=== PATIENT | female | born 1975 | race Caucasian/White ===

== ENCOUNTER 2019-01-10 22:56 | Inpatient (IN) ==
[2019-01-10] MEDS ORDERED: *HR* LORazepam 2 MG/ML VIAL IM PRN (23:00)
[2019-01-10 23:30] LABS: Basophils # 0.1 K/mcL (0.0-0.2); Basophils % 0.5 %; Eosinophils # 0.1 K/mcL (0.0-0.6); Eosinophils % 0.7 %; Hematocrit 38.8 % (35.3-44.9); Hemoglobin 12.6 g/dL (11.5-15.4); Immature Granulocytes % 0.3 % (0-4); Immature Platelets 2.3 % (1.1-6.1); Lymphocytes # 3.4 K/mcL (0.6-4.6); Mean Corpuscular HGB Conc 32.5 g/dL (31.6-35.5); Mean Corpuscular Hemoglobin 30.2 pg (28.0-33.3); Mean Platelet Volume 9.2 fL (9.4-12.4); Monocytes # 1.1 K/mcL (0.0-1.3); Monocytes % 8.3 %; Neutrophils # 8.4 K/mcL (1.6-8.9); Platelet Count 381 K/mcL (140-400); Red Blood Count 4.17 M/mcL (3.82-4.97); Red Cell Distribution Width 13.2 % (11.5-14.5); Segmented Neutrophils % 64.2 %; White Blood Count 13.1 K/mcL (4.3-11.1)
--- NOTE | 2019-01-10 23:46 | Emergency Department Note ---
Disposition Clinical Impression: Acute psychosis, Suicidal ideation, Homicidal ideations Drug-induced psychotic disorder Qualifiers: Complication of substance-induced condition: with unspecified complication Qualified Code(s): F19.959 - Other psychoactive substance use, unspecified with psychoactive substance-induced psychotic disorder, unspecified Disposition: Admitted As Inpatient Condition: Fair Time of Disposition: 02:35 General Adult HPI - General Chief complaint: ED Psychiatric Symptoms Stated complaint: SI HI Time Seen by Provider: 01/10/19 22:59 Source: EMS - History of Present Illness HPI Narrative: 43-year-old female, arriving by EMS, with suicidal ideations and homicidal ideations. Patient endorses snorting a line of ice earlier today. She recently became homeless as she has had a falling out with her significant other. She was found wandering around [place] today. Additionally, she jumped off a 10 [place] bridge landing in water. She denies any injury or trauma from the jump. She states that she was trying to get away from people chasing her. The patient endorses current suicidal ideations, and homicidal ideations. She states that if she had access to a gun she would shoot herself or others. She does not have access to weapons, but does have access to drugs. She has tried to attempt suicide in the past. She attempted to cut her wrists in the past. She has never been hospitalized before for suicidal ideations or attempts. The patient endorses hallucinations, pressured in speech, has flight of ideas, nonlinear thoughts and ideas. Pain Scale: 0 - Related Data Previous Rx's Medication Instructions Recorded HYDROcodone/Acet 5/325 mg [[place] 1 tab PO Q4H PRN #12 tab 07/15/16 5-325 mg] Ibuprofen [Motrin] 600 mg PO TID PRN #30 tab 07/15/16 HydrOXYzine Pamoate [Vistaril] 50 mg PO TID #20 capsule 06/03/18 Allergies Allergy/AdvReac Type Severity Reaction Status Date / Time No Known Allergies Allergy Verified 08/16/15 10:43 All systems ED: reviewed and negative except as stated. Review of Systems: As Per HPI Constitutional: Denies: fever, chills, weakness Cardiovascular: Denies: chest pain, palpitations, syncope Gastrointestinal: Denies: nausea, vomiting Neurological: Denies: headache Psychiatric: Reports: anxiety, suicidal thoughts, homicidal thoughts, visual hallucinations Past Medical History - Past Medical History Medical history: Reports: no medical history Psychiatric history: Reports: anxiety, depression, panic disorder DIRECTOR OF GUIDANCE history: Reports: no DIRECTOR OF GUIDANCE history - Social History Smoking Status: Current every day smoker Smokeless Tobacco Status: No Alcohol use: Reports: none Drug use: Reports: marijuana, methamphetamine Physical Exam GENERAL EXAM Vital signs noted, please see nurses notes. General: Anxious appearing, undernourished Head: Atraumatic, normocephalic. Eyes: Sclera anicteric. ENT: Mucous membranes moist. Heart: Tachycardic rate and rhythm without appreciable murmur, gallops, or rubs. Lungs: Normal respiratory pattern without distress, lungs clear to auscultation b/l. Abdomen: Soft, non-tender, non-distended, no guarding or peritoneal signs. Skin: Warm and dry without rash. Neurologic: . Pupils are equal. Moves all extremities equally well. No focal deficits or lateralizing signs. Psychiatric: Flight of ideas, racing thoughts, pressured speech, nonlinear thoughts, visual hallucinations, anxious appearing, inability to sit still. Suicidal ideations, homicidal ideations. She was extremely paranoid, thinking that multiple people were chasing her including multiple people and trucks and cars. Musculoskeletal: No peripheral edema. No signs of DVT. I will tenderness to palpation on the left lower extremity. No signs of ecchymosis, no abrasions, n egative Homans sign - General General appearance: alert, in no apparent distress Course Course Narrative: An EKG was ordered, labs for psychiatric clearance, and 2 mg of intramuscular Ativan were ordered as the patient was quite anxious and agitated upon arrival Vital Signs Temperature 98.0 F 01/10/19 23:16 Pulse Rate 108 01/10/19 23:16 Respiratory Rate 18 01/10/19 23:16 Blood Pressure 154/95 01/10/19 23:16 O2 Sat by Pulse Oximetry 99 01/10/19 23:16 Temperature 97.6 F 01/11/19 02:50 Pulse Rate 90 01/11/19 02:50 Respiratory Rate 18 01/11/19 02:50 Blood Pressure 90/51 01/11/19 02:50 O2 Sat by Pulse Oximetry 100 01/11/19 02:50 Oxygen Delivery Oxygen Delivery Room Air Medical Decision Making - MDM Narrative Medical decision making narrative: Patient was greeted upon arrival, a thorough history and physical exam were taken from the patient. Psychiatric evaluation was performed in the emergency department, and a sitter was provided as the patient was a harm to herself and others. Behavioral health was consulted. The patient was placed on a 72 hour psychiatric hold for suicidal ideations, homicidal ideations, acute psychosis, and methamphetamine intoxication. The patient is medically cleared at this time, will be admitted at [facility] with Psychiatry. - Lab Data Result diagrams: 01/10/19 23:19 01/10/19 23:19 Lab Results 01/10/19 01/10/19 01/10/19 Range/Units 23:19 23:19 23:24 WBC 13.1 H (4.3-11.1) K/mcL RBC 4.17 (3.82-4.97) M/mcL Hgb 12.6 (11.5-15.4) g/dL Hct 38.8 (35.3-44.9) % MCV 93.0 (83.0-100.0) fL MCH 30.2 (28.0-33.3) pg MCHC 32.5 (31.6-35.5) g/dL RDW 13.2 (11.5-14.5) % Plt Count 381 (140-400) K/mcL MPV 9.2 L (9.4-12.4) fL Immature Gran % 0.3 (0-4) % Seg Neutrophils % 64.2 % Lymphocytes % 26.0 % Monocytes % 8.3 % Eosinophils % 0.7 % Basophils % 0.5 % Neutrophils # 8.4 (1.6-8.9) K/mcL Lymphocytes # 3.4 (0.6-4.6) K/mcL Monocytes # 1.1 (0.0-1.3) K/mcL Eosinophils # 0.1 (0.0-0.6) K/mcL Basophils # 0.1 (0.0-0.2) K/mcL Immature Plt Fraction 2.3 (1.1-6.1) % Sodium 136 (136-145) mEq/L Potassium 3.7 (3.5-5.1) mEq/L Chloride 102 (98-107) mEq/L Carbon Dioxide 25 (23-29) mEq/L BUN 19 (6-20) mg/dL Creatinine 0.84 (0.60-1.20) mg/dL Est GFR ( Amer) > 60 (> 60) Est GFR (Non-Af Amer) > 60 (> 60) BUN/Creatinine Ratio 23 (6-26) Glucose 107 H (70-105) mg/dL POC Glucose 157 H (70-99) mg/dL Calculated Osmolality 285 (280-300) Calcium 9.1 (8.6-10.3) mg/dL Urine Color (Yellow) Urine Clarity (Clear) Urine pH (5.0-8.0) pH Units Ur Specific [place] (1.010-1.025) Urine Protein (Neg-Trace) mg/dL Urine Glucose (UA) (Normal) mg/dL Urine Ketones (Negative) mg/dL Urine Blood (Negative) Urine Nitrite (Negative) Urine Bilirubin (Negative) Urine Urobilinogen (Normal) mg/dL Ur Leukocyte Esterase (Negative) Urine Test (Negative) Salicylates < 2.5 L (15.0-30.0) mg/dL Urine Opiates Screen (Azfnoq=586) ng/mL Ur Buprenorphine Scrn (Cutoff=5) ng/mL Acetaminophen < 10 L (10-20) mcg/mL Ur Barbiturates Screen (Epzfqe=308) ng/mL Ur Phencyclidine Scrn (Cutoff=25) ng/mL Ur Amphetamines Screen (Hhnnkp=9005) ng/mL U Benzodiazepines Scrn ([place]=909) ng/mL Urine Cocaine Screen (Cutoff= 300) ng/mL U Marijuana (THC) Screen (Cutoff = 50) ng/mL Ur Drug Screen Interp Ethyl Alcohol < 10 (Less than 10) mg/dL 01/11/19 01/11/19 01/11/19 Range/Units 00:47 00:47 00:47 WBC (4.3-11.1) K/mcL RBC (3.82-4.97) M/mcL Hgb (11.5-15.4) g/dL Hct (35.3-44.9) % MCV (83.0-100.0) fL MCH (28.0-33.3) pg MCHC (31.6-35.5) g/dL RDW (11.5-14.5) % Plt Count (140-400) K/mcL MPV (9.4-12.4) fL Immature Gran % (0-4) % Seg Neutrophils % % Lymphocytes % % Monocytes % % Eosinophils % % Basophils % % Neutrophils # (1.6-8.9) K/mcL Lymphocytes # (0.6-4.6) K/mcL Monocytes # (0.0-1.3) K/mcL Eosinophils # (0.0-0.6) K/mcL Basophils # (0.0-0.2) K/mcL Immature Plt Fraction (1.1-6.1) % Sodium (136-145) mEq/L Potassium (3.5-5.1) mEq/L Chloride (98-107) mEq/L Carbon Dioxide (23-29) mEq/L BUN (6-20) mg/dL Creatinine (0.60-1.20) mg/dL Est GFR ( Amer) (> 60) Est GFR (Non-Af Amer) (> 60) BUN/Creatinine Ratio (6-26) Glucose (70-105) mg/dL POC Glucose (70-99) mg/dL Calculated Osmolality (280-300) Calcium (8.6-10.3) mg/dL Urine Color Yellow (Yellow) Urine Clarity Clear (Clear) Urine pH 6.0 (5.0-8.0) pH Units Ur Specific [place] 1.014 (1.010-1.025) Urine Protein Negative (Neg-Trace) mg/dL Urine Glucose (UA) Normal (Normal) mg/dL Urine Ketones Negative (Negative) mg/dL Urine Blood Negative (Negative) Urine Nitrite Negative (Negative) Urine Bilirubin Negative (Negative) Urine Urobilinogen Normal (Normal) mg/dL Ur Leukocyte Esterase Negative (Negative) Urine Test Negative (Negative) Salicylates (15.0-30.0) mg/dL Urine Opiates Screen Negative (Jxcfax=986) ng/mL Ur Buprenorphine Scrn Negative (Cutoff=5) ng/mL Acetaminophen (10-20) mcg/mL Ur Barbiturates Screen Negative ([place]=232) ng/mL Ur Phencyclidine Scrn Negative (Cutoff=25) ng/mL Ur Amphetamines Screen Positive H (Awcqlt=6408) ng/mL U Benzodiazepines Scrn Negative (Bqqhwb=472) ng/mL Urine Cocaine Screen Negative (Cutoff= 300) ng/mL U Marijuana (THC) Screen Negative (Cutoff = 50) ng/mL Ur Drug Screen Interp See Below Ethyl Alcohol (Less than 10) mg/dL - EKG Data EKG #1 EKG attestation: Yes I reviewed and interpreted this EKG. EKG results narrative: EKG was interpreted by me. The rhythm is normal sinus rhythm, the rate is regular 88. The axis is normal. There is no evidence of heart block. The QRS duration is within normal limits at 91 the QTC is within normal limits at [address] elevations or depressions and no T-wave inversions or hyper acuity. There is no evidence of pathologic Q waves. There is no evidence of W PW, Brugada, HOCM.
--- NOTE | 2019-01-10 23:47 | Emergency Department Note ---
Disposition Clinical Impression: Acute psychosis, Suicidal ideation, Homicidal ideations Drug-induced psychotic disorder Qualifiers: Complication of substance-induced condition: with unspecified complication Qualified Code(s): F19.959 - Other psychoactive substance use, unspecified with psychoactive substance-induced psychotic disorder, unspecified Disposition: Admitted As Inpatient Condition: Fair Time of Disposition: 02:34 General Adult HPI - General Chief complaint: ED Psychiatric Symptoms Stated complaint: SI HI Time Seen by Provider: 01/10/19 22:59 Source: EMS Nursing Notes Reviewed: Yes Vital Signs Reviewed: Yes - History of Present Illness Pain Scale: 0 - Related Data Previous Rx's Medication Instructions Recorded HYDROcodone/Acet 5/325 mg [[place] 1 tab PO Q4H PRN #12 tab 07/15/16 5-325 mg] Ibuprofen [Motrin] 600 mg PO TID PRN #30 tab 07/15/16 HydrOXYzine Pamoate [Vistaril] 50 mg PO TID #20 capsule 06/03/18 Allergies Allergy/AdvReac Type Severity Reaction Status Date / Time No Known Allergies Allergy Verified 08/16/15 10:43 Past Medical History - Past Medical History Medical history: Reports: no medical history Psychiatric history: Reports: anxiety, depression, panic disorder CONSTRUCTION PLUMBER 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 PLUMBER history - Social History Smoking Status: Current every day smoker Smokeless Tobacco Status: No Alcohol use: Reports: none Drug use: Reports: marijuana, methamphetamine Physical Exam - General General appearance: alert, in no apparent distress Course Vital Signs Temperature 98.0 F 01/10/19 23:16 Pulse Rate 108 01/10/19 23:16 Respiratory Rate 18 01/10/19 23:16 Blood Pressure 154/95 01/10/19 23:16 O2 Sat by Pulse Oximetry 99 01/10/19 23:16 Temperature 98 F 01/10/19 23:22 Pulse Rate 98 01/10/19 23:22 Respiratory Rate 17 01/10/19 23:22 Blood Pressure 154/95 01/10/19 23:22 O2 Sat by Pulse Oximetry 99 01/10/19 23:22 Oxygen Delivery Oxygen Delivery Room Air Medical Decision Making - Medical Records Medical records reviewed: Yes I reviewed the patient's medical records. - Lab Data Lab results reviewed: Yes I reviewed the patient's lab results. Result diagrams: 01/10/19 23:19 01/10/19 23:19 Lab Results 01/10/19 01/10/19 01/10/19 Range/Units 23:19 23:19 23:24 WBC 13.1 H (4.3-11.1) K/mcL RBC 4.17 (3.82-4.97) M/mcL Hgb 12.6 (11.5-15.4) g/dL Hct 38.8 (35.3-44.9) % MCV 93.0 (83.0-100.0) fL MCH 30.2 (28.0-33.3) pg MCHC 32.5 (31.6-35.5) g/dL RDW 13.2 (11.5-14.5) % Plt Count 381 (140-400) K/mcL MPV 9.2 L (9.4-12.4) fL Immature Gran % 0.3 (0-4) % Seg Neutrophils % 64.2 % Lymphocytes % 26.0 % Monocytes % 8.3 % Eosinophils % 0.7 % Basophils % 0.5 % Neutrophils # 8.4 (1.6-8.9) K/mcL Lymphocytes # 3.4 (0.6-4.6) K/mcL Monocytes # 1.1 (0.0-1.3) K/mcL Eosinophils # 0.1 (0.0-0.6) K/mcL Basophils # 0.1 (0.0-0.2) K/mcL Immature Plt Fraction 2.3 (1.1-6.1) % Sodium 136 (136-145) mEq/L Potassium 3.7 (3.5-5.1) mEq/L Chloride 102 (98-107) mEq/L Carbon Dioxide 25 (23-29) mEq/L BUN 19 (6-20) mg/dL Creatinine 0.84 (0.60-1.20) mg/dL Est GFR ( Amer) > 60 (> 60) Est GFR (Non-Af Amer) > 60 (> 60) BUN/Creatinine Ratio 23 (6-26) Glucose 107 H (70-105) mg/dL POC Glucose 157 H (70-99) mg/dL Calculated Osmolality 285 (280-300) Calcium 9.1 (8.6-10.3) mg/dL Urine Color (Yellow) Urine Clarity (Clear) Urine pH (5.0-8.0) pH Units Ur Specific [place] (1.010-1.025) Urine Protein (Neg-Trace) mg/dL Urine Glucose (UA) (Normal) mg/dL Urine Ketones (Negative) mg/dL Urine Blood (Negative) Urine Nitrite (Negative) Urine Bilirubin (Negative) Urine Urobilinogen (Normal) mg/dL Ur Leukocyte Esterase (Negative) Urine Test (Negative) Salicylates < 2.5 L (15.0-30.0) mg/dL Urine Opiates Screen (Bslkhm=751) ng/mL Ur Buprenorphine Scrn (Cutoff=5) ng/mL Acetaminophen < 10 L (10-20) mcg/mL Ur Barbiturates Screen (Wpukze=680) ng/mL Ur Phencyclidine Scrn (Cutoff=25) ng/mL Ur Amphetamines Screen (Axfkjc=1497) ng/mL U Benzodiazepines Scrn (Qnlrsn=510) ng/mL Urine Cocaine Screen (Cutoff= 300) ng/mL U Marijuana (THC) Screen (Cutoff = 50) ng/mL Ur Drug Screen Interp Ethyl Alcohol < 10 (Less than 10) mg/dL 01/11/19 01/11/19 01/11/19 Range/Units 00:47 00:47 00:47 WBC (4.3-11.1) K/mcL RBC (3.82-4.97) M/mcL Hgb (11.5-15.4) g/dL Hct (35.3-44.9) % MCV (83.0-100.0) fL MCH (28.0-33.3) pg MCHC (31.6-35.5) g/dL RDW (11.5-14.5) % Plt Count (140-400) K/mcL MPV (9.4-12.4) fL Immature Gran % (0-4) % Seg Neutrophils % % Lymphocytes % % Monocytes % % Eosinophils % % Basophils % % Neutrophils # (1.6-8.9) K/mcL Lymphocytes # (0.6-4.6) K/mcL Monocytes # (0.0-1.3) K/mcL Eosinophils # (0.0-0.6) K/mcL Basophils # (0.0-0.2) K/mcL Immature Plt Fraction (1.1-6.1) % Sodium (136-145) mEq/L Potassium (3.5-5.1) mEq/L Chloride (98-107) mEq/L Carbon Dioxide (23-29) mEq/L BUN (6-20) mg/dL Creatinine (0.60-1.20) mg/dL Est GFR ( Amer) (> 60) Est GFR (Non-Af Amer) (> 60) BUN/Creatinine Ratio (6-26) Glucose (70-105) mg/dL POC Glucose (70-99) mg/dL Calculated Osmolality (280-300) Calcium (8.6-10.3) mg/dL Urine Color Yellow (Yellow) Urine Clarity Clear (Clear) Urine pH 6.0 (5.0-8.0) pH Units Ur Specific [place] 1.014 (1.010-1.025) Urine Protein Negative (Neg-Trace) mg/dL Urine Glucose (UA) Normal (Normal) mg/dL Urine Ketones Negative (Negative) mg/dL Urine Blood Negative (Negative) Urine Nitrite Negative (Negative) Urine Bilirubin Negative (Negative) Urine Urobilinogen Normal (Normal) mg/dL Ur Leukocyte Esterase Negative (Negative) Urine Test Negative (Negative) Salicylates (15.0-30.0) mg/dL Urine Opiates Screen Negative (Rhqfpz=301) ng/mL Ur Buprenorphine Scrn Negative (Cutoff=5) ng/mL Acetaminophen (10-20) mcg/mL Ur Barbiturates Screen Negative (Lkamgx=723) ng/mL Ur Phencyclidine Scrn Negative (Cutoff=25) ng/mL Ur Amphetamines Screen Positive H (Wrwpsk=0377) ng/mL U Benzodiazepines Scrn Negative (Bsntik=553) ng/mL Urine Cocaine Screen Negative (Cutoff= 300) ng/mL U Marijuana (THC) Screen Negative (Cutoff = 50) ng/mL Ur Drug Screen Interp See Below Ethyl Alcohol (Less than 10) mg/dL - EKG Data EKG #1 EKG attestation: Yes I reviewed and interpreted this EKG. EKG results narrative: EKG shows normal sinus rhythm with ventricular rate of 88. No significant ST segment elevation or depression. No arrhythmia or ectopy. Normal EKG. Attestation Statement - Attestation Attestation: I, Giacomo Durand MD, personally evaluated this patient and discussed their management with the resident physician. I reviewed the resident's note and agree with the documented findings, medical decision making, and plan of care. I reviewed the residents documentation and agree with the residents assessment and plan of care. I have personally had face to face time with the patient. I personally supervised and was present for the park/critical portions of the following procedures completed by the resident: EKG interpretation. 43-year-old female persisted emergency department with a complaint of suicidal and homicidal ideation. Patient very paranoid. He thinks that people in cars and trucks or trying to leo her down and ran over her. She admits to drug use and admits to using meth today. She also states that she jumped off a bridge that was about 10 feet high earlier today. She denies any injury from this. On examination patient is a well-developed thin female in no acute distress. She is alert and oriented 3. There is no cyanosis or diaphoresis. Breath sounds are clear and equal bilaterally. Heart regular rate and rhythm. Abdomen is soft and nontender with normal bowel sounds. No pedal edema. No gross focal neurological deficits. Labs reviewed. Tox screen positive for amphetamine. [address] psychiatry department was consulted to evaluate patient in the [facility]. After evaluation in the emergency department the patient is being admitted to the [address] psychiatric unit.
[2019-01-10 23:49] LABS: Acetaminophen < 10 mcg/mL (10-20); BUN/Creatinine Ratio 23 (6-26); Blood Urea Nitrogen 19 mg/dL (6-20); Calcium 9.1 mg/dL (8.6-10.3); Carbon Dioxide 25 mEq/L (23-29); Chloride 102 mEq/L (98-107); Ethanol < 10 mg/dL (Less than 10); Glucose 107 mg/dL (70-105); Osmolality,Calculated 285 (280-300); Potassium 3.7 mEq/L (3.5-5.1); Salicylate < 2.5 mg/dL (15.0-30.0); Sodium 136 mEq/L (136-145); eGFR For African Americans > 60 (> 60); eGFR For Non-African Americans > 60 (> 60)
[2019-01-11 01:04] LABS: Bilirubin,Urine Negative (Negative); Blood,Urine Negative (Negative); Clarity,Urine Clear (Clear); Color,Urine Yellow (Yellow); Glucose,Urine (UA) Normal (Normal); Ketones,Urine Negative (Negative); Leukocyte Esterase,Urine Negative (Negative); Nitrite,Urine Negative (Negative); Protein,Urine Negative (Neg-Trace); Specific Gravity,Urine 1.014 (1.010-1.025); Urobilinogen,Urine Normal (Normal)
[2019-01-11 01:28] LABS: Amphetamine Screen,Urine Positive ng/mL (Cutoff=1000); Barbiturate Screen,Urine Negative ng/mL (Cutoff=200); Benzodiazepines Screen,Urine Negative ng/mL (Cutoff=200); Cannabinoid Screen,Urine Negative ng/mL (Cutoff = 50); Cocaine Screen,Urine Negative ng/mL (Cutoff= 300); Opiate Screen,Urine Negative ng/mL (Cutoff=300); Phencyclidine Screen,Urine Negative ng/mL (Cutoff=25)
[2019-01-11] MEDS ORDERED: Mag Hydrox/Al Hydrox/Simeth 30 ML UDC PO PRN (03:02)
[2019-01-11] MEDS ORDERED: *HR* LORazepam 1 MG TABLET PO PRN (03:02)
[2019-01-11] MEDS ORDERED: Ibuprofen 400 MG TABLET PO PRN (03:02)
[2019-01-11] MEDS ORDERED: hydrOXYzine pamoate 25 MG CAPSULE PO PRN (03:02)
[2019-01-11] MEDS ORDERED: Nicotine 2 MG GUM BC PRN (03:02)
[2019-01-11] MEDS ORDERED: *HR* LORazepam 2 MG/ML VIAL IM PRN (03:02)
[2019-01-11] MEDS ORDERED: Haloperidol Lactate 5 MG/ML VIAL IM PRN (03:02)
[2019-01-11] MEDS ORDERED: MOM Conc 10 ML UD.LIQ PO PRN (03:02)
[2019-01-11] MEDS ORDERED: traZODone 50 MG TABLET PO PRN (03:02)
--- NOTE | 2019-01-11 12:50 | Psychiatry History & Physical ---
Date of Encounter: 01/11/19 Time of Encounter: 12:47 History of Present Illness Patient Stated Chief Complaint: SI/HI Medicare Admission Attestation: For traditional Medicare patients the provided hospital inpatient services are reasonable and necessary and in the case of services not specified as inpatient-only under 42 CFR 419.22 (n), that they are appropriately provided as inpatient services in accordance 42 CFR 412.3. For Critical Access Hospital the patient may reasonably be expected to be discharged or transferred to a hospital within 96 hours after admission to the Critical Access Hospital. Admitted From: Home Plans for Post Hospital Care: Home History of Present Illness: Ms. Spence is a 43 year old female who presented to the ER with SI/HI and psychosis. Positive for methamphetamines. Unable to be assessed today. Client received emergency medications last night in the ER and again this morning for acting out on the unit. Now sedated and unable to stay awake and talk. No history of mental health hospitalizations so no prior records to review. Will order standard prns for today and reevaluate tomorrow. May start to clear with doses she has already received as a large part of her clinical presentation may be substance induced. Past Med Surg Social Fam HX - Past Medical History Medical history: no medical history - Past Psychiatric History Psychiatric history: Reports: prior suicide attempt Family psychiatric history: Unknown Family History of Suicide: Unknown - Past Surgical History Surgical History: non-contributory - Social History Smoking Status: Current every day smoker Smokeless Tobacco Status: No Alcohol use: occasionally Drug use: opiates, marijuana, methamphetamine Medications & Allergies Allergy/AdvReac Type Severity Reaction Status Date / Time No Known Allergies Allergy Verified 08/16/15 10:43 Review of Systems Constitutional: Denies: fever, chills, weakness, weight change Eyes: Denies: eye pain, vision change Ears, Nose, Throat: Denies: ear pain, throat pain, dental pain, hearing loss, congestion Cardiovascular: Denies: chest pain, palpitations, dyspnea on exertion Respiratory: Denies: cough, dyspnea, wheezes Gastrointestinal: Denies: abdominal pain, nausea, vomiting, diarrhea, constipation Genitourinary female: Denies: urgency, dysuria, frequency, abnormal menses, dyspareunia Musculoskeletal: Denies: joint swelling, joint pain Integumentary: Denies: rash, lesions, pruritus Neurological: Denies: headache, weakness, numbness, memory loss Endocrine: Denies: fatigue, heat or cold intolerance Hematologic/Lymphatic: Denies: easy bruising, lymphadenopathy Allergic/Immunologic: Denies: urticaria, itchy eyes Exam - HEENT Head exam IM: Present: atraumatic Eye exam IM: Present: EOMI, normal appearance, PERRL ENT exam IM: Present: normal exam - Neurological Neurological exam: Present: CN II-XII intact - Respiratory Respiratory exam IM: Present: CTAB - GI/Abdominal GI/Abdominal exam IM: Present: normal bowel sounds, soft. Absent: tenderness - Extremities Extremities exam IM: Present: full ROM - Skin Skin exam IM: Present: dry, warm - Constitutional Vitals: Temp Pulse Resp BP Pulse Ox 97.6 F 90 18 90/51 100 01/11/19 02:50 01/11/19 02:50 01/11/19 02:50 01/11/19 02:50 01/11/19 02:50 General appearance: disheveled - Musculoskeletal Gait: normal Station: relaxed Strength & Tone: normal for patient - Psychiatric Patient Orientation: Yes Other Level of alertness: Sedated Behavior: uncooperative Psychomotor activity: Normal Eye Contact: No Eye Contact Mood Description: Depressed Affect description: congruent with mood Speech Volume: No speech Speech pattern: non-verbal Thought Content: Yes Suicidal ideation, Yes Homicidal ideation Perceptual Disturbances: Yes Auditory hallucinations, Yes Visual hallucinations Attention Span Ability: Unable to Focus, Unable to Sustain Attention Patient Reliability: Questionable Historian Judgment: Poor Insight: Minimal Results - Drug Levels and Toxicology Drug Levels and Toxicology: Drug Levels and Toxicity 01/10/19 01/11/19 23:19 00:47 Urine Opiates Screen Negative Acetaminophen < 10 L Ur Barbiturates Screen Negative Ur Phencyclidine Scrn Negative Ur Amphetamines Screen Positive H U Benzodiazepines Scrn Negative Urine Cocaine Screen Negative U Marijuana (THC) Screen Negative Ethyl Alcohol < 10 - Labs Labs: Laboratory Last Values WBC 13.1 K/mcL (4.3-11.1) H 01/10/19 23:19 RBC 4.17 M/mcL (3.82-4.97) 01/10/19 23:19 Hgb 12.6 g/dL (11.5-15.4) 01/10/19 23:19 Hct 38.8 % (35.3-44.9) 01/10/19 23:19 MCV 93.0 fL (83.0-100.0) 01/10/19 23:19 MCH 30.2 pg (28.0-33.3) 01/10/19 23:19 MCHC 32.5 g/dL (31.6-35.5) 01/10/19 23:19 RDW 13.2 % (11.5-14.5) 01/10/19 23:19 Plt Count 381 K/mcL (140-400) 01/10/19 23:19 MPV 9.2 fL (9.4-12.4) L 01/10/19 23:19 Immature Gran % 0.3 % (0-4) 01/10/19 23: Seg Neutrophils % 64.2 % 01/10/19 23:19 Lymphocytes % 26.0 % 01/10/19 23:19 Monocytes % 8.3 % 01/10/19 23:19 Eosinophils % 0.7 % 01/10/19 23: Basophils % 0.5 % 01/10/19 23:19 Neutrophils # 8.4 K/mcL (1.6-8.9) 01/10/19 23:19 Lymphocytes # 3.4 K/mcL (0.6-4.6) 01/10/19 23:19 Monocytes # 1.1 K/mcL (0.0-1.3) 01/10/19 23:19 Eosinophils # 0.1 K/mcL (0.0-0.6) 01/10/19 23:19 Basophils # 0.1 K/mcL (0.0-0.2) 01/10/19 23:19 Immature Plt Fraction 2.3 % (1.1-6.1) 01/10/19 23:19 Sodium 136 mEq/L (136-145) 01/10/19 23:19 Potassium 3.7 mEq/L (3.5-5.1) 01/10/19 23:19 Chloride 102 mEq/L (98-107) 01/10/19 23:19 Carbon Dioxide 25 mEq/L (23-29) 01/10/19 23:19 BUN 19 mg/dL (6-20) 01/10/19 23:19 Creatinine 0.84 mg/dL (0.60-1.20) 01/10/19 23:19 Est GFR ( Amer) > 60 (> 60) 01/10/19 23:19 Est GFR (Non-Af Amer) > 60 (> 60) 01/10/19 23:19 BUN/Creatinine Ratio 23 (6-26) 01/10/19 23:19 Glucose 107 mg/dL (70-105) H 01/10/19 23:19 POC Glucose 157 mg/dL (70-99) H 01/10/19 23:24 Calculated Osmolality 285 (280-300) 01/10/19 23:19 Calcium 9.1 mg/dL (8.6-10.3) 01/10/19 23:19 Urine Color Yellow (Yellow) 01/11/19 00:47 Urine Clarity Clear (Clear) 01/11/19 00:47 Urine pH 6.0 pH Units (5.0-8.0) 01/11/19 00:47 Ur Specific [place] 1.014 (1.010-1.025) 01/11/19 00:47 Urine Protein Negative mg/dL (Neg-Trace) 01/11/19 00:47 Urine Glucose (UA) Normal mg/dL (Normal) 01/11/19 00:47 Urine Ketones Negative mg/dL (Negative) 01/11/19 00:47 Urine Blood Negative (Negative) 01/11/19 00:47 Urine Nitrite Negative (Negative) 01/11/19 00:47 Urine Bilirubin Negative (Negative) 01/11/19 00:47 Urine Urobilinogen Normal mg/dL (Normal) 01/11/19 00:47 Ur Leukocyte Esterase Negative (Negative) 01/11/19 00:47 Urine Test Negative (Negative) 01/11/19 00:47 Salicylates < 2.5 mg/dL (15.0-30.0) L 01/10/19 23:19 Urine Opiates Screen Negative ng/mL (Fexkhk=926) 01/11/19 00:47 Ur Buprenorphine Scrn Negative ng/mL (Cutoff=5) 01/11/19 00:47 Acetaminophen < 10 mcg/mL (10-20) L 01/10/19 23:19 Ur Barbiturates Screen Negative ng/mL (Exvmxe=815) 01/11/19 00:47 Ur Phencyclidine Scrn Negative ng/mL (Cutoff=25) 01/11/19 00:47 Ur Amphetamines Screen Positive ng/mL (Qodmhp=8507) H 01/11/19 00:47 U Benzodiazepines Scrn Negative ng/mL (Onpewo=800) 01/11/19 00:47 Urine Cocaine Screen Negative ng/mL (Cutoff= 300) 01/11/19 00:47 U Marijuana (THC) Screen Negative ng/mL (Cutoff = 50) 01/11/19 00:47 Ur Drug Screen Interp See Below 01/11/19 00:47 Ethyl Alcohol < 10 mg/dL (Less than 10) 01/10/19 23:19 Assessment and Plan (1) Substance-induced psychotic disorder Current visit: Yes Status: Acute Plan: Admit inpatient for safety and stabilization, Close observation, Suicide Precautions per unit protocol, Encourage participation in unit milieu, Group Therapy, Monitor sleep, Monitor appetite Risks, benefits, side effects, alternatives discussed w/pt: Yes Patient agreeable to treatment: Yes Plans for Post Hospital Care: Home Estimated Length of Stay (Days): 4
--- NOTE | 2019-01-12 00:46 | Electrocardiograph Report ---
[employer] [facility] Test Date: 2019-01-10 Pat Name: Elke Spence Department: [id number] Room: 1A22 Gender: F Data Integration Developer: : 1975 Requested By: [id number] Order Number: [id number] Reading MD: Noemi Llanes Measurements Intervals [place] Rate: 88 P: 69 MI: 131 QRS: 62 QRSD: 91 T: 57 QT: 366 QTc: 443 Interpretive Statements Sinus rhythm Electronically Signed On 01-12-2019 0:44:30 EDT by Noemi Llanes
--- NOTE | 2019-01-12 09:24 | Psychiatry Progress Note ---
Date of Encounter: 01/12/19 Time of Encounter: 09:08 Subjective Interval history: Client slept all day yesterday. Did not get up for 24 hours. Awake this morning but unable to tolerate much of an interview and demanded to go back to bed. Irritable. Uncooperative. Unpleasant. States she did not come to the ER "to get locked up." Claims she came to the ER because the police made her come. "Every time I go walking down the street I get arrested." Client reports she is homeless and is frequently picked up by the police walking from place to place. Tox screen positive for amphetamines. Likely picked up for acting bizarrely while high on meth. Client refused to discuss her AOD use today. Did not disclose much in the way of a mental health history. Denied any prior hospitalizations. Denied any prior suicide attempts. Denied any current linkage or medications. However, she did list the names of several people she claims were her "counselors" in the past. States she can't make appointments anymore due to being homeless. Denied ever being on medications she found helpful. When asked if she wanted medications now client stated she would take meds that make her feel "doped up." When asked what symptoms she is having client stated "I don't know. I'm not a doctor." When asked about past diagnoses she responded with "How the fuck should I know?" When asked if she had any physical health problems she responded with "I don't know. You tell me." Client did say she thinks everyone in her family has mental illness but did not know any details. Client denied having any AH or VH. Past psychosis likely substance induced. Client was endorsing SI when she presented to the ER but denies SI, intent, or plan today. When asked about HI client responded with "Oh hell yeah." Refused to disclose whom she wants to hurt. Current presentation likely secondary to AOD use. Seems to be clearing but is still highly agitated. Also not fully steady on feel yet. Will not start any meds today but have meds available as prns if needed. Suggested rehab as a possibility today. Client indicated she would only consider rehab "on my own time. Not because the police or you want me to." May be more open to the idea once her amphetamine crash has passed. Review of Systems Constitutional: Denies: fever, chills, weakness, weight change Eyes: Denies: eye pain, vision change Ears, Nose, Throat: Denies: ear pain, throat pain, dental pain, hearing loss, congestion Cardiovascular: Denies: chest pain, palpitations, dyspnea on exertion Respiratory: Denies: cough, dyspnea, wheezes Gastrointestinal: Denies: abdominal pain, nausea, vomiting, diarrhea, constipation Musculoskeletal: Denies: joint swelling, joint pain Neurological: Denies: headache, weakness, numbness, memory loss Results - Vital Signs Vital Signs: Temp Pulse Resp BP Pulse Ox 98.0 F 65 14 96/62 99 01/11/19 21:56 01/11/19 21:56 01/11/19 21:56 01/11/19 21:56 01/11/19 21:56 Assessment and Plan (1) Substance-induced psychotic disorder Current visit: Yes Status: Acute Plan: Continue hospitalization, Close observation, Suicide Precautions per unit protocol, Encourage participation in unit milieu, Group Therapy, Monitor sleep, Monitor appetite Risks, benefits, side effects, alternatives discussed w/pt: Yes Patient agreeable to treatment: Yes Consult Discharge Plan - Plan Referrals: NONE,PCP [Primary Care Provider] - Psychiatry Exam - Constitutional Vitals: Temp Pulse Resp BP Pulse Ox 98.0 F 65 14 96/62 99 01/11/19 21:56 01/11/19 21:56 01/11/19 21:56 01/11/19 21:56 01/11/19 21:56 General appearance: unkempt, disheveled - Musculoskeletal Gait: unsteady Station: relaxed Strength & Tone: normal for patient - Psychiatric Patient Orientation: Yes Person, Yes Time, Yes Place Level of alertness: Alert Behavior: agitated, uncooperative Psychomotor activity: Slowed Eye Contact: Avoids Eye Contact Mood Description: Angry, Irritable Affect description: congruent with mood Speech Volume: Normal Speech pattern: normal rate, normal rhythm, normal tone, fluent, spontaneous Language & Vocabulary: consistent with education Thought Process: Linear Thought Content: No Suicidal ideation, Yes Homicidal ideation, No Overt delusions Perceptual Disturbances: No Auditory hallucinations, No Visual hallucinations Attention Span Ability: Capable of Focused Attention Memory Description: Immediate Intact, Recent Impaired, Remote Intact Patient Reliability: Questionable Historian Fund of knowledge: Yes abstraction ability Intelligence Estimate: Average Judgment: Poor Insight: Minimal
[2019-01-12 20:32] VITALS: BP 88/55
--- NOTE | 2019-01-13 08:47 | Discharge Summary ---
Date of Encounter: 01/13/19 Time of Encounter: 07:30 Diagnosis - Discharge Diagnosis (1) Substance-induced psychotic disorder Status: Acute Medications - Discharge Medications No Known Home Drugs 01/11/19 [History] Allergy/AdvReac Type Severity Reaction Status Date / Time No Known Allergies Allergy Verified 08/16/15 10:43 Results Procedures and tests throughout hospitalization: Completed Lab Orders Category Date Time Status Acetaminophen Stat Lab 01/10/19 23:19 Completed Basic Metabolic Panel Stat Lab 01/10/19 23:19 Completed Complete Blood Count [HEME] Stat Lab 01/10/19 23:19 Completed Drug Screen, Urine [UCHEM] Stat Lab 01/11/19 00:47 Completed Ethanol Stat Lab 01/10/19 23:19 Completed Test Result, Urine [URIN] Stat Lab 01/11/19 00:47 Completed Salicylate Stat Lab 01/10/19 23:19 Completed Urinalysis reflex Microscopic [URIN] Stat Lab 01/11/19 00:47 Completed Provider Date of admission: 01/11/19 02:30 Primary care physician: PCP NONE Discharging clinician: Patti Carver Psychiatry Exam - Constitutional Vitals: Temp Pulse Resp BP Pulse Ox 97.9 F 78 16 88/55 100 01/12/19 20:32 01/12/19 20:32 01/12/19 20:32 01/12/19 20:32 01/12/19 20:32 General appearance: age & developmentally appropriate, well-groomed, well- nourished - Musculoskeletal Gait: normal Station: relaxed Strength & Tone: normal for patient - Psychiatric Patient Orientation: Yes Person, Yes Time, Yes Place, Yes Circumstance Level of alertness: Alert Behavior: hostile Psychomotor activity: Normal Eye Contact: Maintains Eye Contact Mood Description: Angry Patient description of mood: I just want to go Affect description: congruent with mood, full range Speech Volume: Normal Speech pattern: normal rate, normal rhythm, normal tone, fluent, spontaneous Language & Vocabulary: consistent with education Thought Process: Linear, Goal Oriented Thought Content: No Suicidal ideation, No Homicidal ideation, No Overt delusions Perceptual Disturbances: No Auditory hallucinations, No Visual hallucinations Attention Span Ability: Capable of Focused Attention Memory Description: Grossly Intact Patient Reliability: Reliable Historian Fund of knowledge: Yes abstraction ability, Yes aware of current events Intelligence Estimate: Average Judgment: Good Insight: Full Hospital Course Hospital course: Ms. Spence is a 43 year old female who was admitted for amphetamine induced p sychosis. As the substances left her body she became more coherent after sleeping the first 24 hours. She declined any psychiatric medications and had capacity to make this decision.Patient was educated on diagnosis and the risk- benefit side effects of alternative treatment options including no medications. Mood anxiety sleep and appetite interest improved as did future orientation. Self-harm thoughts subsided, thinking cleared, psychosis resolved, and mood stabilized. Patient was able to attend both individual and group therapy sessions as well as meet with the psychiatrist daily and urged to discuss any medication or treatment issues or other concerns. The patient was educated primarily by verbal means about their diagnosis and manifestations in their life. The option for treatment including group and individual therapy programming was offered to the patient in addition to the use of medications with all their potential risks, benefits, and side effects as well as the risks of not taking medication and non-adhereance were discussed with the patient at length. The patient was given the opportunity to ask questions and was noted to participate in the treatment in the planning process. The patient felt ready and eager to be discharged from the inpatient psychiatric unit to continue on with treatment as an outpatient. The patient agreed that is they were safe for this disposition. The patient was considered to be able to participate in informed consent and decision making with respect to medical, legal, and financial issues of the time of discharge. At the time of discharge the patient adamantly denied any concerns for lethality including suicidal or homicidal thoughts ideations or plans and was future oriented toward ongoing mental health care, medical follow-up and sobriety. Time spent discussing smoking cessation with patient: 3 to 10 minutes Does patient wish to continue nicotine replacement upon disc: No - Time Spent with Patient Total time spent providing and/or coordinating discharge services: 25 Less than 30 minutes Specific discharge activities: Interval history reviewed. Available labs reviewed . Psychotherapy provided. Patient had an opportunity to ask questions and address concerns. Patient was in agreement with the treatment plan. The risks benefits and side effects of medications were discussed with the patient, including alternatives and treatment. The patient was educated on the abstaining from any alcohol or illicit substances, following up with all scheduled appointments, and taking all medications as prescribed. The patient was educated on 90 meetings in 90 days and to find a sponsor. Assessment and Plan - Patient/Caregiver Discharge Instructions Activity: resume usual activities as tolerated Diet: regular diet Additional Instructions: Continue current medications. Follow up with outpatient mental health. Encourage continued therapy in a group or individual setting. The patient was discharged to home. - Follow up Plan Follow up with: NONE,PCP [Primary Care Provider] - Functional capacity at discharge: independent ambulation Overall status at discharge: Stable Disposition: Home, Self-Care Quality - Multiple Antipsychotics Patient discharged on 2 or more antipsychotic medications: No Procedures - Procedures Procedures: Medication Management, Crisis Stabilization, Supportive Therapy, Group Therapy, Psychoeducational Therapy
== END 2019-01-13 09:25 | disposition home or self-care (01) | DRG 776 ==
LOC: EMEROOARM 22:56 → SUATTDRO 01-11 02:30 → 1ANU 01-11 02:30
PROVIDERS: ADMIT Psychiatry & Neurology Psychiatry; ATTEND Psychiatry & Neurology Psychiatry

== ENCOUNTER 2020-01-15 17:43 | Inpatient (IN) ==
[2020-01-15 18:32] LABS: Basophils # 0.1 K/mcL (0.0-0.2); Basophils % 0.7 %; Eosinophils # 0.3 K/mcL (0.0-0.6); Eosinophils % 2.6 %; Hematocrit 38.2 % (35.3-44.9); Hemoglobin 12.4 g/dL (11.5-15.4); Immature Granulocytes % 0.3 % (0-4); Lymphocytes # 4.4 K/mcL (0.6-4.6); Lymphocytes % 38.2 %; Mean Corpuscular HGB Conc 32.5 g/dL (31.6-35.5); Mean Corpuscular Hemoglobin 28.3 pg (28.0-33.3); Mean Corpuscular Volume 87.2 fL (83.0-100.0); Mean Platelet Volume 9.1 fL (9.4-12.4); Monocytes # 0.7 K/mcL (0.0-1.3); Monocytes % 6.2 %; Platelet Count 471 K/mcL (140-400); Red Blood Count 4.38 M/mcL (3.82-4.97); Red Cell Distribution Width 13.2 % (11.5-14.5); White Blood Count 11.5 K/mcL (4.3-11.1)
[2020-01-15 18:45] LABS: Bacteria,Urine Few per hpf (None-Few); Bilirubin,Urine Negative (Negative); Blood,Urine Negative (Negative); Clarity,Urine Turbid (Clear); Color,Urine Yellow (Yellow); Glucose,Urine (UA) Normal (Normal); Ketones,Urine Negative (Negative); Leukocyte Esterase,Urine Moderate (Negative); Mucus,Urine Few per lpf (None-Few); Nitrite,Urine Negative (Negative); Protein,Urine 30 mg/dL (Neg-Trace); Specific Gravity,Urine 1.028 (1.010-1.025); Squamous Epithelial Cell,Urine Moderate per hpf (None-Few)
[2020-01-15 19:00] LABS: Acetaminophen < 10 mcg/mL (10-20); Alanine Aminotransferase 10 Units/L (7-52); Albumin 4.3 g/dL (3.5-5.7); Albumin/Globulin Ratio 1.5 (1.1-2.2); Alkaline Phosphatase 91 Units/L (34-104); Aspartate Amino Transferase 17 Units/L (13-39); BUN/Creatinine Ratio 16 (6-26); Bilirubin,Direct 0.1 mg/dL (0.0-0.2); Bilirubin,Indirect 0.2 mg/dL (0.0-1.0); Bilirubin,Total 0.3 mg/dL (0.3-1.0); Blood Urea Nitrogen 11 mg/dL (6-20); Calcium 9.1 mg/dL (8.6-10.3); Carbon Dioxide 28 mEq/L (23-29); Chloride 104 mEq/L (98-107); Ethanol < 10 mg/dL (Less than 10); Globulin 2.8 g/dL (2.4-3.5); Glucose 80 mg/dL (70-105); Osmolality,Calculated 284 (280-300); Potassium 3.5 mEq/L (3.5-5.1); Salicylate < 2.5 mg/dL (15.0-30.0); Sodium 138 mEq/L (136-145); Total Protein 7.1 g/dL (6.4-8.9); eGFR For African Americans > 60 (> 60); eGFR For Non-African Americans > 60 (> 60)
[2020-01-15 19:10] LABS: Thyroid Stimulating Hormone 1.042 mcIU/mL (0.340-5.600)
[2020-01-15 19:18] LABS: Amphetamine Screen,Urine Positive ng/mL (Cutoff=1000); Barbiturate Screen,Urine Negative ng/mL (Cutoff=200); Benzodiazepines Screen,Urine Negative ng/mL (Cutoff=200); Cannabinoid Screen,Urine Positive ng/mL (Cutoff = 50); Cocaine Screen,Urine Negative ng/mL (Cutoff= 300); Opiate Screen,Urine Negative ng/mL (Cutoff=300); Phencyclidine Screen,Urine Negative ng/mL (Cutoff=25)
[2020-01-15] MEDS ORDERED: MOM Conc 10 ML UD.LIQ PO PRN (21:46)
[2020-01-15] MEDS ORDERED: Nicotine 2 MG GUM BC PRN (21:46)
[2020-01-15] MEDS ORDERED: *HR* LORazepam 2 MG/ML VIAL IM PRN (21:46)
[2020-01-15] MEDS ORDERED: Mag Hydrox/Al Hydrox/Simeth 30 ML UDC PO PRN (21:46)
[2020-01-16] MEDS: haloperidoL 5 MG TABLET PO PRN (17:02)
[2020-01-16] MEDS: *HR* LORazepam 1 MG TABLET PO PRN (17:03)
[2020-01-16] MEDS: chlorproMAZINE 25 MG TABLET PO SCH (21:51)
[2020-01-17] MEDS: chlorproMAZINE 25 MG TABLET PO SCH ×2 (09:48→20:44)
[2020-01-17] MEDS: traZODone 50 MG TABLET PO PRN (20:44)
[2020-01-17] MEDS: Ibuprofen 400 MG TABLET PO PRN (20:44)
[2020-01-17] MEDS: hydrOXYzine pamoate 25 MG CAPSULE PO PRN (20:44)
[2020-01-18] MEDS: chlorproMAZINE 25 MG TABLET PO SCH ×2 (09:07→20:48)
[2020-01-18] MEDS: hydrOXYzine pamoate 25 MG CAPSULE PO PRN (20:48)
[2020-01-18] MEDS: Ibuprofen 400 MG TABLET PO PRN (20:48)
[2020-01-18] MEDS: traZODone 50 MG TABLET PO PRN (20:48)
[2020-01-19] MEDS: chlorproMAZINE 25 MG TABLET PO SCH ×2 (08:18→21:02)
[2020-01-19] MEDS: *HR* LORazepam 1 MG TABLET PO PRN (15:50)
[2020-01-19] MEDS: haloperidoL 5 MG TABLET PO PRN (15:50)
[2020-01-19] MEDS: traZODone 50 MG TABLET PO PRN (21:02)
[2020-01-19] MEDS: Ibuprofen 400 MG TABLET PO PRN (21:02)
[2020-01-19] MEDS: hydrOXYzine pamoate 25 MG CAPSULE PO PRN (21:02)
[2020-01-20] MEDS: chlorproMAZINE 25 MG TABLET PO SCH (08:49)
[2020-01-20 09:31] VITALS: BP 88/52
[2020-01-20] MEDS ORDERED: Aspirin Enteric Coated 81 MG Tablet PO SCH (10:00)
[2020-01-20] MEDS ORDERED: Ergocalciferol (VIT D2) 50,000 UNIT (1.25MG) CAP PO SCH ×3 (10:00→14:00)
== END 2020-01-20 17:20 | disposition home or self-care (01) | DRG 776 ==
LOC: EMEROOARM 17:43 → 1ANU 21:20 → SUATTDRO 21:20 → 1ANU 23:06
PROVIDERS: ADMIT Psychiatry & Neurology Psychiatry; ATTEND Psychiatry & Neurology Psychiatry

== ENCOUNTER 2020-04-22 17:01 | Inpatient (IN) ==
[2020-04-22 17:26] LABS: Basophils # 0.1 K/mcL (0.0-0.2); Basophils % 0.4 %; Eosinophils # 0.3 K/mcL (0.0-0.6); Eosinophils % 2.2 %; Hematocrit 42.5 % (35.3-44.9); Hemoglobin 13.7 g/dL (11.5-15.4); Immature Granulocytes % 0.3 % (0-4); Lymphocytes # 4.1 K/mcL (0.6-4.6); Lymphocytes % 28.3 %; Mean Corpuscular HGB Conc 32.2 g/dL (31.6-35.5); Mean Corpuscular Hemoglobin 27.8 pg (28.0-33.3); Mean Corpuscular Volume 86.4 fL (83.0-100.0); Mean Platelet Volume 9.3 fL (9.4-12.4); Monocytes % 6.8 %; Platelet Count 481 K/mcL (140-400); Red Blood Count 4.92 M/mcL (3.82-4.97); Red Cell Distribution Width 13.6 % (11.5-14.5); White Blood Count 14.5 K/mcL (4.3-11.1)
[2020-04-22 17:46] LABS: Acetaminophen < 10 mcg/mL (10-20); BUN/Creatinine Ratio 19 (6-26); Blood Urea Nitrogen 12 mg/dL (6-20); Calcium 9.3 mg/dL (8.6-10.3); Carbon Dioxide 26 mEq/L (23-29); Chloride 103 mEq/L (98-107); Cholesterol 178 mg/dL (< 200); Ethanol < 10 mg/dL (Less than 10); Glucose 89 mg/dL (70-105); HDL Cholesterol 60 mg/dL (40-59); LDL Cholesterol,Calculated 99 mg/dL (< 100); Osmolality,Calculated 283 (280-300); Potassium 3.7 mEq/L (3.5-5.1); Salicylate < 2.5 mg/dL (15.0-30.0); Sodium 137 mEq/L (136-145); Triglycerides 93 mg/dL (< 150); eGFR For African Americans > 60 (> 60); eGFR For Non-African Americans > 60 (> 60)
[2020-04-22 17:58] LABS: Estimated Average Glucose 120 mg/dl
[2020-04-22 19:22] LABS: Bacteria,Urine Few per hpf (None-Few); Bilirubin,Urine Negative (Negative); Blood,Urine Large (Negative); Clarity,Urine Turbid (Clear); Color,Urine Yellow (Yellow); Glucose,Urine (UA) Normal (Normal); Ketones,Urine 10 mg/dL (Negative); Leukocyte Esterase,Urine Large (Negative); Mucus,Urine Few per lpf (None-Few); Nitrite,Urine Negative (Negative); Protein,Urine Trace mg/dL (Neg-Trace); RBC,Urine TNTC per hpf (0-3); Specific Gravity,Urine 1.023 (1.010-1.025); Squamous Epithelial Cell,Urine Moderate per hpf (None-Few); Urobilinogen,Urine Normal (Normal); WBC,Urine 30-50 per hpf (0-3)
[2020-04-22 19:23] LABS: Amphetamine Screen,Urine Positive ng/mL (Cutoff=1000); Barbiturate Screen,Urine Negative ng/mL (Cutoff=200); Benzodiazepines Screen,Urine Negative ng/mL (Cutoff=200); Cannabinoid Screen,Urine Negative ng/mL (Cutoff = 50); Cocaine Screen,Urine Negative ng/mL (Cutoff= 300); Opiate Screen,Urine Negative ng/mL (Cutoff=300); Phencyclidine Screen,Urine Negative ng/mL (Cutoff=25)
[2020-04-22] MEDS ORDERED: cephALEXin 250 MG CAPSULE PO ONE (20:04)
[2020-04-22] MEDS ORDERED: *HR* LORazepam 1 MG TABLET PO PRN (20:29)
[2020-04-22] MEDS ORDERED: Ibuprofen 400 MG TABLET PO PRN (20:29)
[2020-04-22] MEDS ORDERED: *HR* LORazepam 2 MG/ML VIAL IM PRN (20:29)
[2020-04-22] MEDS ORDERED: MOM Conc 10 ML UD.LIQ PO PRN (20:29)
[2020-04-22] MEDS ORDERED: Haloperidol Lactate 5 MG/ML VIAL IM PRN (20:29)
[2020-04-22] MEDS ORDERED: haloperidoL 5 MG TABLET PO PRN (20:29)
[2020-04-22] MEDS ORDERED: Mag Hydrox/Al Hydrox/Simeth 30 ML UDC PO PRN (20:29)
[2020-04-22] MEDS ORDERED: hydrOXYzine pamoate 25 MG CAPSULE PO PRN (20:31)
[2020-04-22] MEDS ORDERED: traZODone 50 MG TABLET PO PRN (20:31)
[2020-04-22] MEDS: chlorproMAZINE 25 MG TABLET PO SCH (21:56)
[2020-04-23] MEDS: cephALEXin 500 MG CAPSULE PO SCH ×2 (08:49→20:11)
[2020-04-23] MEDS: chlorproMAZINE 25 MG TABLET PO SCH ×2 (08:49→20:11)
[2020-04-23] MEDS: Aspirin Enteric Coated 81 MG Tablet PO SCH (08:49)
[2020-04-23] MEDS ORDERED: Ergocalciferol (VIT D2) 50,000 UNIT (1.25MG) CAP PO SCH (09:00)
[2020-04-24] MEDS: cephALEXin 500 MG CAPSULE PO SCH ×2 (08:53→20:56)
[2020-04-24] MEDS: chlorproMAZINE 25 MG TABLET PO SCH ×2 (08:53→20:56)
[2020-04-24] MEDS: Aspirin Enteric Coated 81 MG Tablet PO SCH (08:53)
[2020-04-25] MEDS: Aspirin Enteric Coated 81 MG Tablet PO SCH (08:30)
[2020-04-25] MEDS: cephALEXin 500 MG CAPSULE PO SCH ×2 (08:31→20:08)
[2020-04-25] MEDS: chlorproMAZINE 25 MG TABLET PO SCH ×2 (08:31→20:08)
[2020-04-26] MEDS: chlorproMAZINE 25 MG TABLET PO SCH (08:26)
[2020-04-26] MEDS: Aspirin Enteric Coated 81 MG Tablet PO SCH (08:26)
[2020-04-26] MEDS: cephALEXin 500 MG CAPSULE PO SCH (08:27)
[2020-04-26 08:34] VITALS: BP 93/61
== END 2020-04-26 16:00 | disposition home or self-care (01) | DRG 751 ==
LOC: EMEROOARM 17:01 → 1ANU 20:18
PROVIDERS: ADMIT Psychiatry & Neurology Psychiatry; ATTEND Psychiatry & Neurology Psychiatry

== ENCOUNTER 2021-10-28 19:22 | Observation (INO) ==
[2021-10-28] MEDS ORDERED: *HR* HYDROmorphone 2 MG/ML SYRINGE IVP ONE ×3 (20:08→22:56)
[2021-10-28 20:47] LABS: Basophils # 0.1 K/mcL (0.0-0.2); Basophils % 0.4 %; Eosinophils # 0.5 K/mcL (0.0-0.6); Eosinophils % 2.3 %; Hematocrit 24.9 % (35.3-44.9); Immature Granulocytes % 1.4 % (0-4); Lymphocytes # 2.6 K/mcL (0.6-4.6); Lymphocytes % 12.6 %; Mean Corpuscular HGB Conc 32.1 g/dL (31.6-35.5); Mean Corpuscular Hemoglobin 26.1 pg (28.0-33.3); Mean Corpuscular Volume 81.4 fL (83.0-100.0); Mean Platelet Volume 8.6 fL (9.4-12.4); Monocytes # 0.9 K/mcL (0.0-1.3); Monocytes % 4.2 %; Neutrophils # 16.5 K/mcL (1.6-8.9); Platelet Count 1118 K/mcL (140-400); Red Blood Count 3.06 M/mcL (3.82-4.97); Red Cell Distribution Width 15.4 % (11.5-14.5); Segmented Neutrophils % 79.1 %; White Blood Count 20.8 K/mcL (4.3-11.1)
[2021-10-28 21:03] LABS: Alanine Aminotransferase 44 Units/L (7-52); Albumin 3.3 g/dL (3.5-5.7); Albumin/Globulin Ratio 0.8 (1.1-2.2); Alkaline Phosphatase 363 Units/L (34-104); Aspartate Amino Transferase 28 Units/L (13-39); BUN/Creatinine Ratio 23 (6-26); Bilirubin,Total 0.2 mg/dL (0.3-1.0); Blood Urea Nitrogen 22 mg/dL (6-20); Calcium 8.8 mg/dL (8.6-10.3); Carbon Dioxide 25 mEq/L (23-29); Chloride 101 mEq/L (98-107); Glucose 92 mg/dL (70-105); Magnesium 1.7 mg/dL (1.6-2.6); Osmolality,Calculated 287 (280-300); Potassium 3.8 mEq/L (3.5-5.1); Sodium 137 mEq/L (136-145); Total Protein 7.3 g/dL (6.4-8.9); eGFR For African Americans > 60 (> 60); eGFR For Non-African Americans > 60 (> 60)
[2021-10-28] MEDS ORDERED: Ringers Solution, Lactated 1,000 ML IVC ONE (21:17)
[2021-10-28] MEDS ORDERED: Isovue-370 500 ML BOTTLE IVP ONE (21:18)
[2021-10-28 21:32] LABS: Platelet Estimate Marked Increase (Normal)
[2021-10-28 22:29] LABS: Bacteria,Urine Moderate per hpf (None-Few); Bilirubin,Urine Negative (Negative); Blood,Urine Large (Negative); Budding Yeast,Urine Many per hpf (None Seen); Clarity,Urine Ex.Turbid (Clear); Color,Urine Yellow (Yellow); Glucose,Urine (UA) Normal (Normal); Ketones,Urine Negative (Negative); Leukocyte Esterase,Urine Large (Negative); Nitrite,Urine Negative (Negative); Protein,Urine 100 mg/dL (Neg-Trace); RBC,Urine TNTC per hpf (0-3); Specific Gravity,Urine 1.026 (1.010-1.025); Squamous Epithelial Cell,Urine Few per hpf (None-Few); Urobilinogen,Urine Normal (Normal); WBC,Urine TNTC per hpf (0-3)
[2021-10-28] MEDS ORDERED: cefTRIAXone 2,000 MG in 0.9 % Sodium Chloride 20 ML IVP ONE (22:35)
[2021-10-29 00:02] LABS: Amphetamine Screen,Urine Positive ng/mL (Cutoff=1000); Barbiturate Screen,Urine Negative ng/mL (Cutoff=200); Benzodiazepines Screen,Urine Positive ng/mL (Cutoff=200); Cannabinoid Screen,Urine Negative ng/mL (Cutoff = 50); Cocaine Screen,Urine Negative ng/mL (Cutoff= 300); Opiate Screen,Urine Positive ng/mL (Cutoff=300); Phencyclidine Screen,Urine Negative ng/mL (Cutoff=25)
[2021-10-29] MEDS ORDERED: *HR* HYDROmorphone 2 MG/ML SYRINGE IVP PRN ×2 (00:03→09:22)
[2021-10-29] MEDS ORDERED: Ringers Solution, Lactated 1,000 ML IVC ONE (00:04)
[2021-10-29] MEDS ORDERED: Naloxone 0.4 MG/ML INJ IVP PRN (08:55)
[2021-10-29] MEDS ORDERED: Ringers Solution, Lactated 1,000 ML IVC SCH (09:00)
[2021-10-29] MEDS ORDERED: Melatonin 3 MG TABLET PO PRN (09:16)
[2021-10-29] MEDS ORDERED: MOM Conc 10 ML UD.LIQ PO PRN (09:16)
[2021-10-29] MEDS ORDERED: Acetaminophen 325 MG TABLET PO PRN (09:16)
[2021-10-29] MEDS ORDERED: Mag Hydrox/Al Hydrox/Simeth 30 ML UDC PO PRN (09:16)
[2021-10-29] MEDS ORDERED: *HR* HYDROmorphone (PF) 1 MG/ML SYRINGE IVP PRN (10:43)
[2021-10-29 12:06] VITALS: BP 143/72; PULSE 83; TEMP 98.3; O2SAT 95
[2021-10-30] MEDS ORDERED: cefTRIAXone 2,000 MG in 0.9 % Sodium Chloride 20 ML IVP SCH (09:00)
== END 2021-10-29 15:10 | disposition home or self-care (01) ==
LOC: 3ANU 19:22 → EMEROOARM 19:22 → 3ANU 10-29 07:44
PROVIDERS: ADMIT Internal Medicine; ATTEND Internal Medicine

== ENCOUNTER 2022-01-12 16:31 | Inpatient (IN) ==
[2022-01-12] MEDS ORDERED: 0.9 % Sodium Chloride 1,000 ML IVC ONE (18:14)
[2022-01-12] MEDS ORDERED: *HR* HYDROmorphone (PF) 1 MG/ML SYRINGE IVP ONE (18:14)
[2022-01-12 18:53] LABS: Basophils # 0.1 K/mcL (0.0-0.2); Basophils % 0.7 %; Eosinophils # 0.7 K/mcL (0.0-0.6); Eosinophils % 5.8 %; Hematocrit 33.1 % (35.3-44.9); Hemoglobin 10.5 g/dL (11.5-15.4); Immature Granulocytes % 0.3 % (0-4); Lymphocytes # 3.2 K/mcL (0.6-4.6); Mean Corpuscular HGB Conc 31.7 g/dL (31.6-35.5); Mean Corpuscular Hemoglobin 26.7 pg (28.0-33.3); Mean Corpuscular Volume 84.2 fL (83.0-100.0); Monocytes # 0.6 K/mcL (0.0-1.3); Monocytes % 5.2 %; Neutrophils # 7.2 K/mcL (1.6-8.9); Platelet Count 690 K/mcL (140-400); Red Blood Count 3.93 M/mcL (3.82-4.97); Red Cell Distribution Width 15.9 % (11.5-14.5); White Blood Count 11.8 K/mcL (4.3-11.1)
[2022-01-12 19:05] LABS: Bacteria,Urine Few per hpf (None-Few); Bilirubin,Urine Negative (Negative); Blood,Urine Large (Negative); Clarity,Urine Ex.Turbid (Clear); Color,Urine Yellow (Yellow); Glucose,Urine (UA) Normal (Normal); Ketones,Urine Negative (Negative); Leukocyte Esterase,Urine Large (Negative); Mucus,Urine Few per lpf (None-Few); Nitrite,Urine Positive (Negative); PH,Urine 6.5 pH Units (5.0-8.0); Protein,Urine 200 mg/dL (Neg-Trace); RBC,Urine 50-100 per hpf (0-3); Specific Gravity,Urine 1.012 (1.010-1.025); Urobilinogen,Urine Normal (Normal); WBC,Urine TNTC per hpf (0-3)
[2022-01-12 19:18] LABS: BUN/Creatinine Ratio 17 (6-26); Blood Urea Nitrogen 15 mg/dL (6-20); Calcium 9.5 mg/dL (8.6-10.3); Carbon Dioxide 27 mEq/L (23-29); Chloride 93 mEq/L (98-107); Glucose 98 mg/dL (70-105); Osmolality,Calculated 273 (280-300); Potassium 3.3 mEq/L (3.5-5.1); Sodium 131 mEq/L (136-145); eGFR For African Americans > 60 (> 60); eGFR For Non-African Americans > 60 (> 60)
[2022-01-12] MEDS ORDERED: cefTRIAXone 1,000 MG in 0.9 % Sodium Chloride Mini Bag 100 ML IVPB ONE (19:34)
[2022-01-12] MEDS ORDERED: Ondansetron 4 MG/2 ML VIAL IVP PRN (20:12)
[2022-01-12] MEDS ORDERED: Naloxone 0.4 MG/ML INJ IVP PRN (20:12)
[2022-01-12 21:15] LABS: Phosphorous 3.7 mg/dL (2.7-4.5)
[2022-01-12] MEDS: 0.9 % Sodium Chloride 1,000 ML IVC SCH (21:32)
[2022-01-12] MEDS ORDERED: D5% in Water 1,000 ML IVC PRN (21:38)
[2022-01-12] MEDS ORDERED: Dextrose Gel 15 GM/37.5 ML TUBE PO PRN ×2 (21:38)
[2022-01-12] MEDS ORDERED: *HR* Dextrose 50 % in Water (Syg) 50 ML SYRINGE IVP PRN (21:38)
[2022-01-12] MEDS ORDERED: Psyllium 1 PACKET POWD.PACK PO PRN (23:07)
[2022-01-12] MEDS ORDERED: Nicotine 7 MG PATCH.TD24 TD PRN (23:09)
[2022-01-13] MEDS: Piperacillin/Tazobactam 3.375 GM in 0.9 % Sodium Chloride Mini Bag 100 ML IVPB SCH ×3 (00:16→15:09)
[2022-01-13 00:35] LABS: Amphetamine Screen,Urine Positive ng/mL (Cutoff=1000); Barbiturate Screen,Urine Negative ng/mL (Cutoff=200); Benzodiazepines Screen,Urine Negative ng/mL (Cutoff=200); Cannabinoid Screen,Urine Negative ng/mL (Cutoff = 50); Cocaine Screen,Urine Negative ng/mL (Cutoff= 300); Opiate Screen,Urine Positive ng/mL (Cutoff=300); Phencyclidine Screen,Urine Negative ng/mL (Cutoff=25)
[2022-01-13 03:57] LABS: Hematocrit 31.3 % (35.3-44.9); Hemoglobin 9.8 g/dL (11.5-15.4); Mean Corpuscular HGB Conc 31.3 g/dL (31.6-35.5); Mean Corpuscular Hemoglobin 26.8 pg (28.0-33.3); Mean Corpuscular Volume 85.5 fL (83.0-100.0); Mean Platelet Volume 8.9 fL (9.4-12.4); Platelet Count 567 K/mcL (140-400); Red Blood Count 3.66 M/mcL (3.82-4.97); Red Cell Distribution Width 15.8 % (11.5-14.5); White Blood Count 9.3 K/mcL (4.3-11.1)
[2022-01-13 04:17] LABS: Alanine Aminotransferase 6 Units/L (7-52); Albumin 2.9 g/dL (3.5-5.7); Albumin/Globulin Ratio 0.8 (1.1-2.2); Alkaline Phosphatase 130 Units/L (34-104); Aspartate Amino Transferase 9 Units/L (13-39); BUN/Creatinine Ratio 16 (6-26); Bilirubin,Total 0.2 mg/dL (0.3-1.0); Blood Urea Nitrogen 13 mg/dL (6-20); Calcium 8.2 mg/dL (8.6-10.3); Carbon Dioxide 26 mEq/L (23-29); Chloride 101 mEq/L (98-107); Globulin 3.5 g/dL (2.4-3.5); Glucose 102 mg/dL (70-105); Osmolality,Calculated 278 (280-300); Potassium 3.4 mEq/L (3.5-5.1); Sodium 134 mEq/L (136-145); Total Protein 6.4 g/dL (6.4-8.9); eGFR For African Americans > 60 (> 60); eGFR For Non-African Americans > 60 (> 60)
[2022-01-13] MEDS: *HR* Enoxaparin 40 MG/0.4 ML SYRINGE SQ SCH (05:17)
[2022-01-13] MEDS: Ketorolac 30 MG/ML VIAL IVP PRN ×2 (07:36→15:10)
[2022-01-13] MEDS: Nicotine 21 MG PATCH.TD24 TD SCH (07:41)
[2022-01-13] MEDS: Lactobacillus 1 EACH CAP.SPRINK PO SCH ×2 (07:41→22:34)
[2022-01-13] MEDS ORDERED: Melatonin 3 MG TABLET PO PRN (15:39)
[2022-01-13] MEDS: 0.9 % Sodium Chloride 1,000 ML IVC SCH (17:40)
[2022-01-14] MEDS: Piperacillin/Tazobactam 3.375 GM in 0.9 % Sodium Chloride Mini Bag 100 ML IVPB SCH ×2 (00:11→11:36)
[2022-01-14] MEDS: Acetaminophen 325 MG TABLET PO PRN (05:20)
[2022-01-14] MEDS: *HR* Enoxaparin 40 MG/0.4 ML SYRINGE SQ SCH (05:22)
[2022-01-14] MEDS: Lactobacillus 1 EACH CAP.SPRINK PO SCH ×2 (08:42→22:13)
[2022-01-14] MEDS: Nicotine 21 MG PATCH.TD24 TD SCH (08:42)
[2022-01-14 13:35] LABS: Estimated Average Glucose 123 mg/dl; Hemoglobin A1C 5.9 %
[2022-01-14] MEDS: *HR* OxyCODONE Immed Rel 5 MG TABLET PO PRN ×2 (13:53→22:13)
[2022-01-14] MEDS ORDERED: Iopamidol - 370 500 ML MLS IVP ONE (14:09)
[2022-01-14] MEDS: 0.9 % Sodium Chloride 1,000 ML IVC SCH (15:28)
[2022-01-15] MEDS: Acetaminophen 325 MG TABLET PO PRN (00:24)
[2022-01-15] MEDS: *HR* Enoxaparin 40 MG/0.4 ML SYRINGE SQ SCH (05:48)
[2022-01-15] MEDS: 0.9 % Sodium Chloride 1,000 ML IVC SCH ×2 (05:49→17:06)
[2022-01-15] MEDS: *HR* OxyCODONE Immed Rel 5 MG TABLET PO PRN ×2 (05:49→20:53)
[2022-01-15] MEDS: Lactobacillus 1 EACH CAP.SPRINK PO SCH ×2 (08:15→20:54)
[2022-01-15] MEDS: Nicotine 21 MG PATCH.TD24 TD SCH (10:17)
[2022-01-15] MEDS: Ketorolac 30 MG/ML VIAL IVP PRN (10:31)
[2022-01-15] MEDS: Sulfamethoxazole/Trimeth DS 1 EACH TABLET PO SCH ×2 (10:58→20:54)
[2022-01-16] MEDS: *HR* Enoxaparin 40 MG/0.4 ML SYRINGE SQ SCH (05:47)
[2022-01-16] MEDS: Nicotine 21 MG PATCH.TD24 TD SCH (09:03)
[2022-01-16] MEDS: 0.9 % Sodium Chloride 1,000 ML IVC SCH ×2 (09:03→10:22)
[2022-01-16] MEDS: Lactobacillus 1 EACH CAP.SPRINK PO SCH ×2 (09:03→21:47)
[2022-01-16] MEDS: Sulfamethoxazole/Trimeth DS 1 EACH TABLET PO SCH ×2 (09:03→21:47)
[2022-01-16] MEDS: *HR* OxyCODONE Immed Rel 5 MG TABLET PO PRN (09:10)
[2022-01-16] MEDS ORDERED: Bisacodyl 10 MG RECTAL SUPPOSITORY RC ONE (12:30)
[2022-01-16] MEDS ORDERED: Ondansetron ODT 4 MG TAB.RAPDIS SL PRN (12:50)
[2022-01-16] MEDS ORDERED: Bisacodyl 10 MG RECTAL SUPPOSITORY RC PRN (12:51)
[2022-01-16 16:58] LABS: BUN/Creatinine Ratio 7 (6-26); Blood Urea Nitrogen 6 mg/dL (6-20); Calcium 9.4 mg/dL (8.6-10.3); Carbon Dioxide 28 mEq/L (23-29); Chloride 99 mEq/L (98-107); Glucose 97 mg/dL (70-105); Osmolality,Calculated 278 (280-300); Potassium 3.5 mEq/L (3.5-5.1); Sodium 135 mEq/L (136-145); eGFR For African Americans > 60 (> 60); eGFR For Non-African Americans > 60 (> 60)
[2022-01-16 17:00] LABS: Basophils # 0.1 K/mcL (0.0-0.2); Basophils % 0.6 %; Eosinophils # 0.8 K/mcL (0.0-0.6); Eosinophils % 8.3 %; Hemoglobin 10.3 g/dL (11.5-15.4); Immature Granulocytes % 0.5 % (0-4); Lymphocytes # 3.2 K/mcL (0.6-4.6); Lymphocytes % 32.4 %; Mean Corpuscular HGB Conc 31.2 g/dL (31.6-35.5); Mean Corpuscular Hemoglobin 26.5 pg (28.0-33.3); Mean Corpuscular Volume 84.8 fL (83.0-100.0); Mean Platelet Volume 8.5 fL (9.4-12.4); Monocytes # 0.6 K/mcL (0.0-1.3); Monocytes % 5.7 %; Neutrophils # 5.1 K/mcL (1.6-8.9); Platelet Count 654 K/mcL (140-400); Red Blood Count 3.89 M/mcL (3.82-4.97); Red Cell Distribution Width 16.1 % (11.5-14.5); Segmented Neutrophils % 52.5 %; White Blood Count 9.8 K/mcL (4.3-11.1)
[2022-01-16] MEDS: Acetaminophen 325 MG TABLET PO SCH (17:07)
[2022-01-16] MEDS: *HR* Buprenorphine HCl 2 MG SUBLINGUAL TABLET SL SCH ×2 (17:07→21:51)
[2022-01-17] MEDS: 0.9 % Sodium Chloride 1,000 ML IVC SCH ×2 (03:51→10:39)
[2022-01-17] MEDS: Acetaminophen 325 MG TABLET PO SCH ×2 (06:22)
[2022-01-17] MEDS: *HR* Enoxaparin 40 MG/0.4 ML SYRINGE SQ SCH (06:23)
[2022-01-17] MEDS: *HR* Buprenorphine HCl 2 MG SUBLINGUAL TABLET SL SCH (09:27)
[2022-01-17] MEDS: Sulfamethoxazole/Trimeth DS 1 EACH TABLET PO SCH (09:27)
[2022-01-17] MEDS: Nicotine 21 MG PATCH.TD24 TD SCH (09:28)
[2022-01-17] MEDS: Lactobacillus 1 EACH CAP.SPRINK PO SCH (09:28)
[2022-01-17 10:50] VITALS: BP 125/73; PULSE 66; TEMP 97.5; O2SAT 97
== END 2022-01-17 13:42 | disposition home or self-care (01) | DRG 861 ==
LOC: SUATTDRO → 3BNU 16:31 → EMEROOARM 16:31 → SUATTDRO 19:59 → 3BNU 20:36
PROVIDERS: ADMIT Internal Medicine; ATTEND Registered Nurse

== ENCOUNTER 2022-03-11 12:11 | Inpatient (IN) ==
[2022-03-11 12:42] LABS: Basophils # 0.1 K/mcL (0.0-0.2); Basophils % 0.5 %; Eosinophils # 0.2 K/mcL (0.0-0.6); Eosinophils % 1.6 %; Hematocrit 28.8 % (35.3-44.9); Hemoglobin 8.9 g/dL (11.5-15.4); Immature Granulocytes % 0.8 % (0-4); Lymphocytes # 1.9 K/mcL (0.6-4.6); Mean Corpuscular HGB Conc 30.9 g/dL (31.6-35.5); Mean Corpuscular Hemoglobin 26.3 pg (28.0-33.3); Mean Corpuscular Volume 85.2 fL (83.0-100.0); Mean Platelet Volume 8.6 fL (9.4-12.4); Monocytes # 0.8 K/mcL (0.0-1.3); Monocytes % 5.5 %; Neutrophils # 11.4 K/mcL (1.6-8.9); Platelet Count 739 K/mcL (140-400); Red Blood Count 3.38 M/mcL (3.82-4.97); Red Cell Distribution Width 17.3 % (11.5-14.5); Segmented Neutrophils % 78.6 %; White Blood Count 14.4 K/mcL (4.3-11.1)
[2022-03-11] MEDS ORDERED: Ondansetron 4 MG/2 ML VIAL IVP ONE (13:00)
[2022-03-11 13:01] LABS: Calcium 8.9 mg/dL (8.6-10.3); Potassium 6.2 mEq/L (3.5-5.1)
[2022-03-11] MEDS ORDERED: 0.9 % Sodium Chloride 1,000 ML IVC ONE (13:14)
[2022-03-11] MEDS ORDERED: Calcium Gluconate 1,000 MG/10 ML VIAL IVP ONE (13:18)
[2022-03-11] MEDS ORDERED: Albuterol 2.5 MG/3 ML NEBULIZER IH ONE (13:19)
[2022-03-11] MEDS ORDERED: *HR* Dextrose 50 % in Water (Syg) 50 ML SYRINGE IVP ONE (13:20)
[2022-03-11] MEDS ORDERED: Insulin Human Regular 10 UNIT in 0.9 % Sodium Chloride 10 ML IV ONE (13:20)
[2022-03-11 15:04] LABS: Bacteria,Urine Few per hpf (None-Few); Bilirubin,Urine Negative (Negative); Blood,Urine Large (Negative); Clarity,Urine Ex.Turbid (Clear); Color,Urine Light-Orange (Yellow); Glucose,Urine (UA) 50 mg/dL (Normal); Ketones,Urine Negative (Negative); Leukocyte Esterase,Urine Large (Negative); Nitrite,Urine Negative (Negative); Protein,Urine 100 mg/dL (Neg-Trace); RBC,Urine TNTC per hpf (0-3); Specific Gravity,Urine 1.015 (1.010-1.025); Urobilinogen,Urine Normal (Normal); WBC,Urine TNTC per hpf (0-3)
[2022-03-11] MEDS ORDERED: Naloxone 0.4 MG/ML INJ IVP PRN (15:07)
[2022-03-11 15:39] LABS: Amphetamine Screen,Urine Positive ng/mL (Cutoff=1000); Barbiturate Screen,Urine Positive ng/mL (Cutoff=200); Benzodiazepines Screen,Urine Negative ng/mL (Cutoff=200); Cannabinoid Screen,Urine Negative ng/mL (Cutoff = 50); Cocaine Screen,Urine Negative ng/mL (Cutoff= 300); Opiate Screen,Urine Negative ng/mL (Cutoff=300); Phencyclidine Screen,Urine Negative ng/mL (Cutoff=25)
[2022-03-11] MEDS ORDERED: Naloxone 0.4 MG/ML INJ ONE (15:43)
[2022-03-11] MEDS ORDERED: Naloxone 0.4 MG/ML INJ IVP ONE (15:46)
[2022-03-11] MEDS: SODIUM ZIRCONIUM CYCLOSILICATE 5 GM POWD.PACK PO SCH ×2 (16:32→16:41)
[2022-03-11] MEDS: Sodium Bicarbonate 150 MEQ in Water for inj. (sterile) 1,000 ML IVC SCH (16:32)
[2022-03-11 17:27] LABS: VBG HCO3 14 mEq/L (21-27); VBG PCO2 36 mmHg (41-51); VBG PH 7.21 pH Units (7.32-7.42); VBG PO2 111 mmHg (25-50)
[2022-03-11] MEDS: *HR* Heparin 5,000 UNIT/ML VIAL SQ SCH (17:53)
[2022-03-11 17:59] LABS: Calcium 8.9 mg/dL (8.6-10.3); Potassium 3.9 mEq/L (3.5-5.1)
[2022-03-12] MEDS: Sodium Bicarbonate 150 MEQ in Water for inj. (sterile) 1,000 ML IVC SCH (01:54)
[2022-03-12] MEDS: Acetaminophen 325 MG TABLET PO PRN (04:23)
[2022-03-12] MEDS: *HR* Heparin 5,000 UNIT/ML VIAL SQ SCH ×2 (04:24→17:58)
[2022-03-12 07:44] LABS: INR 1.2; Prothrombin Time 13.9 Seconds (9.4-12.1)
[2022-03-12 07:50] LABS: Magnesium 1.7 mg/dL (1.6-2.6); Phosphorous 9.8 mg/dL (2.7-4.5); Potassium 4.3 mEq/L (3.5-5.1)
[2022-03-12] MEDS: SODIUM ZIRCONIUM CYCLOSILICATE 5 GM POWD.PACK PO SCH (09:49)
[2022-03-12] MEDS: *HR* Buprenorphine HCl 2 MG SUBLINGUAL TABLET SL SCH ×4 (10:00→20:25)
[2022-03-13] MEDS: *HR* Buprenorphine HCl 2 MG SUBLINGUAL TABLET SL SCH ×4 (03:12→19:58)
[2022-03-13] MEDS: Acetaminophen 325 MG TABLET PO PRN ×2 (03:15→22:59)
[2022-03-13] MEDS: *HR* Heparin 5,000 UNIT/ML VIAL SQ SCH ×2 (05:29→18:13)
[2022-03-13 06:47] LABS: VBG HCO3 18 mEq/L (21-27); VBG PCO2 38 mmHg (41-51); VBG PO2 61 mmHg (25-50)
[2022-03-13 06:48] LABS: Hemoglobin 7.7 g/dL (11.5-15.4); Mean Corpuscular HGB Conc 32.1 g/dL (31.6-35.5); Mean Corpuscular Hemoglobin 25.8 pg (28.0-33.3); Mean Corpuscular Volume 80.5 fL (83.0-100.0); Mean Platelet Volume 8.7 fL (9.4-12.4); Platelet Count 744 K/mcL (140-400); Red Blood Count 2.98 M/mcL (3.82-4.97); Red Cell Distribution Width 17.2 % (11.5-14.5); White Blood Count 15.8 K/mcL (4.3-11.1)
[2022-03-13 07:10] LABS: Calcium 8.1 mg/dL (8.6-10.3); Potassium 4.2 mEq/L (3.5-5.1)
[2022-03-13] MEDS: *HR* Promethazine 25 MG/ML VIAL IM PRN (09:19)
[2022-03-13] MEDS: SODIUM ZIRCONIUM CYCLOSILICATE 5 GM POWD.PACK PO SCH (09:23)
[2022-03-13] MEDS ORDERED: 0.9 % Sodium Chloride 500 ML ONE ×2 (12:41→14:01)
[2022-03-13] MEDS ORDERED: *HR* FentaNYL (PF) 100 MCG/2 ML VIAL ONE (14:01)
[2022-03-13] MEDS ORDERED: *HR* Midazolam HCl 2 MG/2 ML VIAL ONE (14:19)
[2022-03-13] MEDS ORDERED: *HR* FentaNYL (PF) 100 MCG/2 ML VIAL IVP ONE (14:26)
[2022-03-13] MEDS ORDERED: *HR* Midazolam HCl 2 MG/2 ML VIAL IVP ONE (14:26)
[2022-03-13] MEDS ORDERED: 0.9 % Sodium Chloride 1,000 ML IVC ONE (15:04)
[2022-03-13] MEDS ORDERED: *HR* Dextrose 50 % in Water (Syg) 50 ML SYRINGE IVP PRN (15:06)
[2022-03-13] MEDS ORDERED: Dextrose Gel 15 GM/37.5 ML TUBE PO PRN ×2 (15:06)
[2022-03-13] MEDS ORDERED: D5% in Water 1,000 ML IVC PRN (15:06)
[2022-03-13] MEDS ORDERED: Sodium Bicarbonate 150 MEQ in Water for inj. (sterile) 1,000 ML IVC SCH (15:15)
[2022-03-13] MEDS: *HR* OxyCODONE Immed Rel 5 MG TABLET PO PRN (18:15)
[2022-03-13] MEDS: Ondansetron 4 MG/2 ML VIAL IVP PRN (18:15)
[2022-03-13] MEDS: Melatonin 3 MG TABLET PO PRN (22:59)
[2022-03-14] MEDS: *HR* Buprenorphine HCl 2 MG SUBLINGUAL TABLET SL SCH ×4 (02:19→19:30)
[2022-03-14] MEDS: *HR* Heparin 5,000 UNIT/ML VIAL SQ SCH ×2 (05:26→17:54)
[2022-03-14 05:38] LABS: Potassium 3.3 mEq/L (3.5-5.1)
[2022-03-14 05:39] LABS: Magnesium 1.8 mg/dL (1.6-2.6); Phosphorous 9.4 mg/dL (2.7-4.5)
[2022-03-14] MEDS: *HR* OxyCODONE Immed Rel 5 MG TABLET PO PRN ×3 (11:13→20:28)
[2022-03-14] MEDS ORDERED: hydrOXYzine pamoate 25 MG CAPSULE PO PRN (14:15)
[2022-03-14] MEDS: Ondansetron 4 MG/2 ML VIAL IVP PRN (18:00)
[2022-03-15] MEDS: *HR* OxyCODONE Immed Rel 5 MG TABLET PO PRN ×3 (00:07→09:32)
[2022-03-15] MEDS ORDERED: QUEtiapine Fumarate 25 MG TABLET PO ONE (00:49)
[2022-03-15 02:48] LABS: Hematocrit 24.9 % (35.3-44.9); Hemoglobin 8.1 g/dL (11.5-15.4); Mean Corpuscular HGB Conc 32.5 g/dL (31.6-35.5); Mean Corpuscular Hemoglobin 25.8 pg (28.0-33.3); Mean Corpuscular Volume 79.3 fL (83.0-100.0); Mean Platelet Volume 8.7 fL (9.4-12.4); Platelet Count 806 K/mcL (140-400); Red Blood Count 3.14 M/mcL (3.82-4.97); Red Cell Distribution Width 16.6 % (11.5-14.5)
[2022-03-15 03:11] LABS: Calcium 8.9 mg/dL (8.6-10.3); Potassium 3.7 mEq/L (3.5-5.1)
[2022-03-15] MEDS: *HR* Buprenorphine HCl 2 MG SUBLINGUAL TABLET SL SCH ×3 (03:16→13:47)
[2022-03-15] MEDS: *HR* Heparin 5,000 UNIT/ML VIAL SQ SCH ×2 (05:12→17:45)
[2022-03-15] MEDS ORDERED: QUEtiapine Fumarate 25 MG TABLET PO PRN (16:51)
[2022-03-15] MEDS: hydrOXYzine pamoate 25 MG CAPSULE PO PRN (17:46)
[2022-03-15] MEDS: Melatonin 3 MG TABLET PO PRN (20:45)
[2022-03-15] MEDS: *HR* Buprenorphine HCl 8 MG TAB.SUBL SL SCH (20:45)
[2022-03-16] MEDS: QUEtiapine Fumarate 25 MG TABLET PO SCH ×3 (01:00→16:29)
[2022-03-16] MEDS: *HR* OxyCODONE Immed Rel 5 MG TABLET PO PRN ×2 (01:33→06:43)
[2022-03-16 05:58] LABS: Basophils # 0.1 K/mcL (0.0-0.2); Basophils % 0.4 %; Eosinophils # 0.2 K/mcL (0.0-0.6); Eosinophils % 1.7 %; Hematocrit 23.8 % (35.3-44.9); Hemoglobin 7.5 g/dL (11.5-15.4); Immature Granulocytes % 0.6 % (0-4); Lymphocytes % 15.8 %; Mean Corpuscular HGB Conc 31.5 g/dL (31.6-35.5); Mean Corpuscular Volume 82.6 fL (83.0-100.0); Mean Platelet Volume 8.4 fL (9.4-12.4); Monocytes # 0.9 K/mcL (0.0-1.3); Monocytes % 7.1 %; Neutrophils # 9.4 K/mcL (1.6-8.9); Platelet Count 792 K/mcL (140-400); Red Blood Count 2.88 M/mcL (3.82-4.97); Red Cell Distribution Width 16.7 % (11.5-14.5); Segmented Neutrophils % 74.4 %; White Blood Count 12.6 K/mcL (4.3-11.1)
[2022-03-16 06:33] LABS: Calcium 9.1 mg/dL (8.6-10.3); Potassium 3.3 mEq/L (3.5-5.1)
[2022-03-16] MEDS: hydrOXYzine pamoate 25 MG CAPSULE PO PRN (06:43)
[2022-03-16] MEDS: *HR* Heparin 5,000 UNIT/ML VIAL SQ SCH ×2 (06:44→16:29)
[2022-03-16] MEDS: *HR* Buprenorphine HCl 8 MG TAB.SUBL SL SCH ×2 (07:35→21:18)
[2022-03-16] MEDS: *HR* Labetalol 20 MG/4 ML SYRINGE IVP PRN (17:28)
[2022-03-16] MEDS ORDERED: *HR* Labetalol 20 MG/4 ML SYRINGE IVP ONE (21:08)
[2022-03-17] MEDS: *HR* OxyCODONE Immed Rel 5 MG TABLET PO PRN ×2 (02:09→12:24)
[2022-03-17] MEDS: Ondansetron 4 MG/2 ML VIAL IVP PRN ×2 (03:58→18:37)
[2022-03-17] MEDS: hydrOXYzine pamoate 25 MG CAPSULE PO PRN (03:58)
[2022-03-17] MEDS: *HR* Heparin 5,000 UNIT/ML VIAL SQ SCH ×2 (05:06→17:39)
[2022-03-17] MEDS: *HR* Buprenorphine HCl 8 MG TAB.SUBL SL SCH ×2 (08:41→19:49)
[2022-03-17 10:27] LABS: Calcium 10.2 mg/dL (8.6-10.3)
[2022-03-17 10:32] LABS: Basophils # 0.1 K/mcL (0.0-0.2); Basophils % 0.7 %; Eosinophils # 0.1 K/mcL (0.0-0.6); Eosinophils % 0.6 %; Hematocrit 29.2 % (35.3-44.9); Hemoglobin 8.9 g/dL (11.5-15.4); Lymphocytes # 1.6 K/mcL (0.6-4.6); Lymphocytes % 13.5 %; Mean Corpuscular HGB Conc 30.5 g/dL (31.6-35.5); Mean Corpuscular Hemoglobin 25.3 pg (28.0-33.3); Mean Platelet Volume 8.1 fL (9.4-12.4); Monocytes # 0.8 K/mcL (0.0-1.3); Monocytes % 6.5 %; Platelet Count 966 K/mcL (140-400); Red Blood Count 3.52 M/mcL (3.82-4.97); Red Cell Distribution Width 16.9 % (11.5-14.5); Segmented Neutrophils % 77.7 %
[2022-03-17 10:40] LABS: Neutrophils # 9.3 K/mcL (1.6-8.9)
[2022-03-17] MEDS: Acetaminophen 325 MG TABLET PO PRN (18:37)
[2022-03-17] MEDS: QUEtiapine Fumarate 25 MG TABLET PO SCH (19:49)
[2022-03-18] MEDS: *HR* Heparin 5,000 UNIT/ML VIAL SQ SCH ×2 (04:59→17:21)
[2022-03-18 05:28] LABS: Calcium 10.2 mg/dL (8.6-10.3); Magnesium 1.6 mg/dL (1.6-2.6); Potassium 3.7 mEq/L (3.5-5.1)
[2022-03-18] MEDS: Ondansetron 4 MG/2 ML VIAL IVP PRN ×2 (08:27→15:00)
[2022-03-18] MEDS: *HR* Buprenorphine HCl 8 MG TAB.SUBL SL SCH ×2 (08:28→19:46)
[2022-03-18] MEDS: Acetaminophen 325 MG TABLET PO PRN (11:34)
[2022-03-18] MEDS: QUEtiapine Fumarate 25 MG TABLET PO SCH (19:46)
[2022-03-18] MEDS: *HR* Labetalol 20 MG/4 ML SYRINGE IVP PRN (19:46)
[2022-03-19 02:48] LABS: Calcium 9.8 mg/dL (8.6-10.3); Potassium 3.5 mEq/L (3.5-5.1)
[2022-03-19] MEDS: *HR* Heparin 5,000 UNIT/ML VIAL SQ SCH ×2 (04:43→18:08)
[2022-03-19] MEDS: *HR* Labetalol 20 MG/4 ML SYRINGE IVP PRN ×2 (05:16→16:07)
[2022-03-19] MEDS: *HR* Buprenorphine HCl 8 MG TAB.SUBL SL SCH ×2 (08:57→19:38)
[2022-03-19] MEDS: QUEtiapine Fumarate 25 MG TABLET PO SCH (19:39)
[2022-03-19] MEDS: Gabapentin 100 MG CAPSULE PO SCH (19:41)
[2022-03-20] MEDS: *HR* Heparin 5,000 UNIT/ML VIAL SQ SCH (05:30)
[2022-03-20] MEDS: *HR* Labetalol 20 MG/4 ML SYRINGE IVP PRN (05:35)
[2022-03-20 06:29] LABS: Potassium 3.6 mEq/L (3.5-5.1)
[2022-03-20] MEDS: *HR* Buprenorphine HCl 8 MG TAB.SUBL SL SCH ×2 (09:40→20:32)
[2022-03-20] MEDS: Gabapentin 100 MG CAPSULE PO SCH ×2 (09:40→20:34)
[2022-03-20] MEDS ORDERED: Bisacodyl 10 MG RECTAL SUPPOSITORY RC PRN (10:34)
[2022-03-20] MEDS: amLODIPine 5 MG TABLET PO SCH (12:20)
[2022-03-20] MEDS: Sennosides/Docusate Sodium TABLET PO SCH ×2 (12:21→20:33)
[2022-03-20] MEDS: QUEtiapine Fumarate 25 MG TABLET PO SCH (20:32)
[2022-03-21 04:29] LABS: Hematocrit 25.9 % (35.3-44.9); Mean Corpuscular HGB Conc 30.9 g/dL (31.6-35.5); Mean Corpuscular Hemoglobin 25.7 pg (28.0-33.3); Mean Corpuscular Volume 83.3 fL (83.0-100.0); Mean Platelet Volume 8.3 fL (9.4-12.4); Platelet Count 661 K/mcL (140-400); Red Blood Count 3.11 M/mcL (3.82-4.97); Red Cell Distribution Width 15.9 % (11.5-14.5); White Blood Count 14.2 K/mcL (4.3-11.1)
[2022-03-21 04:50] LABS: Calcium 7.8 mg/dL (8.6-10.3); Potassium 3.3 mEq/L (3.5-5.1)
[2022-03-21] MEDS: *HR* Enoxaparin 30 MG/0.3 ML SYRINGE SQ SCH (06:03)
[2022-03-21] MEDS: Gabapentin 100 MG CAPSULE PO SCH ×2 (07:58→20:53)
[2022-03-21] MEDS: Sennosides/Docusate Sodium TABLET PO SCH ×2 (07:59→20:53)
[2022-03-21] MEDS: *HR* Buprenorphine HCl 8 MG TAB.SUBL SL SCH ×2 (07:59→20:53)
[2022-03-21] MEDS: amLODIPine 5 MG TABLET PO SCH (07:59)
[2022-03-21 08:45] LABS: Bacteria,Urine Few per hpf (None-Few); Bilirubin,Urine Negative (Negative); Blood,Urine Moderate (Negative); Clarity,Urine Turbid (Clear); Color,Urine Light-Yellow (Yellow); Glucose,Urine (UA) Normal (Normal); Ketones,Urine Negative (Negative); Leukocyte Esterase,Urine Moderate (Negative); Mucus,Urine Few per lpf (None-Few); Nitrite,Urine Negative (Negative); PH,Urine 6.5 pH Units (5.0-8.0); Protein,Urine >=300 mg/dL (Neg-Trace); RBC,Urine 50-100 per hpf (0-3); Specific Gravity,Urine 1.018 (1.010-1.025); Squamous Epithelial Cell,Urine Few per hpf (None-Few); Urobilinogen,Urine Normal (Normal); WBC,Urine TNTC per hpf (0-3)
[2022-03-21] MEDS: QUEtiapine Fumarate 25 MG TABLET PO SCH (20:53)
[2022-03-21] MEDS: Acetaminophen 325 MG TABLET PO PRN (20:53)
[2022-03-22] MEDS: *HR* Enoxaparin 30 MG/0.3 ML SYRINGE SQ SCH (05:36)
[2022-03-22] MEDS: amLODIPine 5 MG TABLET PO SCH (07:39)
[2022-03-22] MEDS: *HR* Buprenorphine HCl 8 MG TAB.SUBL SL SCH ×2 (07:39→20:33)
[2022-03-22] MEDS: Sennosides/Docusate Sodium TABLET PO SCH ×2 (07:39→20:33)
[2022-03-22] MEDS: Gabapentin 100 MG CAPSULE PO SCH ×2 (07:39→20:32)
[2022-03-22 13:58] LABS: Calcium 10.4 mg/dL (8.6-10.3); Phosphorous 3.9 mg/dL (2.7-4.5)
[2022-03-22] MEDS ORDERED: 0.9 % Sodium Chloride 1,000 ML IVC SCH (15:15)
[2022-03-22] MEDS: QUEtiapine Fumarate 25 MG TABLET PO SCH (20:32)
[2022-03-22] MEDS: Acetaminophen 325 MG TABLET PO PRN (22:21)
[2022-03-22] MEDS ORDERED: traZODone 50 MG TABLET PO PRN (23:50)
[2022-03-23] MEDS ORDERED: *HR* HYDROmorphone (PF) 1 MG/ML SYRINGE IVP ONE (00:05)
[2022-03-23] MEDS: *HR* Enoxaparin 30 MG/0.3 ML SYRINGE SQ SCH (05:12)
[2022-03-23 05:47] LABS: Basophils # 0.1 K/mcL (0.0-0.2); Basophils % 0.5 %; Eosinophils # 0.5 K/mcL (0.0-0.6); Eosinophils % 3.2 %; Hematocrit 24.4 % (35.3-44.9); Hemoglobin 7.5 g/dL (11.5-15.4); Immature Granulocytes % 1.1 % (0-4); Lymphocytes # 2.6 K/mcL (0.6-4.6); Mean Corpuscular HGB Conc 30.7 g/dL (31.6-35.5); Mean Corpuscular Hemoglobin 25.9 pg (28.0-33.3); Mean Corpuscular Volume 84.1 fL (83.0-100.0); Mean Platelet Volume 8.9 fL (9.4-12.4); Monocytes # 1.1 K/mcL (0.0-1.3); Monocytes % 6.5 %; Neutrophils # 11.9 K/mcL (1.6-8.9); Platelet Count 628 K/mcL (140-400); Segmented Neutrophils % 72.7 %; White Blood Count 16.4 K/mcL (4.3-11.1)
[2022-03-23 06:09] LABS: Calcium 9.8 mg/dL (8.6-10.3); Potassium 3.7 mEq/L (3.5-5.1)
[2022-03-23] MEDS: Sennosides/Docusate Sodium TABLET PO SCH ×2 (08:39→21:03)
[2022-03-23] MEDS: Gabapentin 100 MG CAPSULE PO SCH ×2 (08:39→21:03)
[2022-03-23] MEDS: amLODIPine 5 MG TABLET PO SCH (08:39)
[2022-03-23] MEDS: *HR* Buprenorphine HCl 8 MG TAB.SUBL SL SCH ×2 (08:40→21:02)
[2022-03-23 12:44] LABS: Bacteria,Urine Few per hpf (None-Few); Bilirubin,Urine Negative (Negative); Blood,Urine Moderate (Negative); Clarity,Urine Turbid (Clear); Color,Urine Yellow (Yellow); Glucose,Urine (UA) Normal (Normal); Ketones,Urine Negative (Negative); Leukocyte Esterase,Urine Large (Negative); Mucus,Urine Few per lpf (None-Few); Nitrite,Urine Negative (Negative); PH,Urine 6.5 pH Units (5.0-8.0); Protein,Urine 100 mg/dL (Neg-Trace); RBC,Urine 50-100 per hpf (0-3); Specific Gravity,Urine 1.016 (1.010-1.025); Squamous Epithelial Cell,Urine Few per hpf (None-Few); Urobilinogen,Urine Normal (Normal); WBC,Urine TNTC per hpf (0-3)
[2022-03-23] MEDS: Acetaminophen 325 MG TABLET PO PRN (14:18)
[2022-03-23] MEDS: Cefepime HCl 1,000 MG in 0.9 % Sodium Chloride Mini Bag 100 ML IVPB SCH (14:20)
[2022-03-23] MEDS: QUEtiapine Fumarate 25 MG TABLET PO SCH (21:03)
[2022-03-24] MEDS: Cefepime HCl 1,000 MG in 0.9 % Sodium Chloride Mini Bag 100 ML IVPB SCH ×2 (02:00→13:03)
[2022-03-24] MEDS: *HR* Enoxaparin 30 MG/0.3 ML SYRINGE SQ SCH (05:46)
[2022-03-24] MEDS: Gabapentin 100 MG CAPSULE PO SCH ×2 (09:35→20:51)
[2022-03-24] MEDS: Sennosides/Docusate Sodium TABLET PO SCH ×2 (09:36→20:51)
[2022-03-24] MEDS: amLODIPine 5 MG TABLET PO SCH (09:36)
[2022-03-24] MEDS: *HR* Buprenorphine HCl 8 MG TAB.SUBL SL SCH ×2 (09:36→20:51)
[2022-03-24] MEDS: Acetaminophen 325 MG TABLET PO PRN (20:50)
[2022-03-24] MEDS: QUEtiapine Fumarate 25 MG TABLET PO SCH (20:51)
[2022-03-25] MEDS: Cefepime HCl 1,000 MG in 0.9 % Sodium Chloride Mini Bag 100 ML IVPB SCH (02:01)
[2022-03-25 04:56] LABS: Eosinophils % 3.2 %; Hematocrit 16.8 % (35.3-44.9)
[2022-03-25 04:58] LABS: Basophils # 0.1 K/mcL (0.0-0.2); Basophils % 0.5 %; Eosinophils # 0.4 K/mcL (0.0-0.6); Lymphocytes # 1.7 K/mcL (0.6-4.6); Lymphocytes % 15.4 %; Mean Corpuscular HGB Conc 29.8 g/dL (31.6-35.5); Mean Corpuscular Hemoglobin 25.8 pg (28.0-33.3); Mean Corpuscular Volume 86.6 fL (83.0-100.0); Mean Platelet Volume 9.2 fL (9.4-12.4); Monocytes # 0.8 K/mcL (0.0-1.3); Neutrophils # 8.1 K/mcL (1.6-8.9); Platelet Count 373 K/mcL (140-400); Red Blood Count 1.94 M/mcL (3.82-4.97); Red Cell Distribution Width 15.9 % (11.5-14.5); Segmented Neutrophils % 72.9 %; White Blood Count 11.1 K/mcL (4.3-11.1)
[2022-03-25 05:22] LABS: Basophils # 0.1 K/mcL (0.0-0.2); Basophils % 0.6 %; Eosinophils # 0.5 K/mcL (0.0-0.6); Eosinophils % 3.5 %; Hematocrit 24.5 % (35.3-44.9); Mean Corpuscular Hemoglobin 25.9 pg (28.0-33.3); Mean Corpuscular Volume 83.3 fL (83.0-100.0); Mean Platelet Volume 8.9 fL (9.4-12.4); Monocytes % 6.6 %; Neutrophils # 10.7 K/mcL (1.6-8.9); Platelet Count 681 K/mcL (140-400); Red Blood Count 2.94 M/mcL (3.82-4.97); Red Cell Distribution Width 15.9 % (11.5-14.5); Segmented Neutrophils % 74.3 %; White Blood Count 14.5 K/mcL (4.3-11.1)
[2022-03-25 05:27] LABS: Hemoglobin 7.6 g/dL (11.5-15.4)
[2022-03-25] MEDS: *HR* Enoxaparin 30 MG/0.3 ML SYRINGE SQ SCH (05:44)
[2022-03-25] MEDS: hydrOXYzine pamoate 25 MG CAPSULE PO PRN ×2 (09:03→17:55)
[2022-03-25] MEDS: Sennosides/Docusate Sodium TABLET PO SCH ×2 (09:04→19:56)
[2022-03-25] MEDS: amLODIPine 5 MG TABLET PO SCH (09:04)
[2022-03-25] MEDS: *HR* Buprenorphine HCl 8 MG TAB.SUBL SL SCH ×2 (09:04→19:56)
[2022-03-25] MEDS: Gabapentin 100 MG CAPSULE PO SCH ×2 (09:04→19:56)
[2022-03-25] MEDS: Acetaminophen 325 MG TABLET PO PRN ×3 (10:40→22:06)
[2022-03-25] MEDS: Ondansetron 4 MG/2 ML VIAL IVP PRN (15:59)
[2022-03-25] MEDS: Doxycycline 100 MG in 0.9 % Sodium Chloride Mini Bag 100 ML IVPB SCH (17:55)
[2022-03-25] MEDS: QUEtiapine Fumarate 25 MG TABLET PO SCH (19:56)
[2022-03-25] MEDS: Lactobacillus 1 EACH CAP.SPRINK PO SCH (19:56)
[2022-03-26] MEDS: Ondansetron 4 MG/2 ML VIAL IVP PRN ×2 (02:15→18:28)
[2022-03-26] MEDS: Doxycycline 100 MG in 0.9 % Sodium Chloride Mini Bag 100 ML IVPB SCH (06:27)
[2022-03-26] MEDS: *HR* Enoxaparin 30 MG/0.3 ML SYRINGE SQ SCH ×2 (06:29→06:32)
[2022-03-26] MEDS ORDERED: 0.9 % Sodium Chloride 500 ML IVC ONE (07:13)
[2022-03-26] MEDS: Gabapentin 100 MG CAPSULE PO SCH ×2 (07:48→20:05)
[2022-03-26] MEDS: Sennosides/Docusate Sodium TABLET PO SCH ×3 (07:49→20:01)
[2022-03-26] MEDS: amLODIPine 5 MG TABLET PO SCH (07:49)
[2022-03-26] MEDS: Lactobacillus 1 EACH CAP.SPRINK PO SCH ×2 (07:49→20:05)
[2022-03-26] MEDS: *HR* Buprenorphine HCl 8 MG TAB.SUBL SL SCH ×2 (08:04→20:05)
[2022-03-26] MEDS: Acetaminophen 325 MG TABLET PO PRN (11:14)
[2022-03-26] MEDS ORDERED: *HR* OxyCODONE/APAP 5/325 TABLET PO ONE (11:31)
[2022-03-26 11:58] LABS: Hematocrit 21.6 % (35.3-44.9); Mean Platelet Volume 9.2 fL (9.4-12.4)
[2022-03-26 12:00] LABS: Hemoglobin 6.6 g/dL (11.5-15.4); Mean Corpuscular HGB Conc 30.6 g/dL (31.6-35.5); Mean Corpuscular Hemoglobin 25.7 pg (28.0-33.3); Monocytes # 1.4 K/mcL (0.0-1.3); Platelet Count 780 K/mcL (140-400); Red Blood Count 2.57 M/mcL (3.82-4.97); Red Cell Distribution Width 15.7 % (11.5-14.5)
[2022-03-26 12:05] LABS: White Blood Count 34.3 K/mcL (4.3-11.1)
[2022-03-26 12:13] LABS: Calcium 10.3 mg/dL (8.6-10.3); Potassium 3.1 mEq/L (3.5-5.1)
[2022-03-26] MEDS ORDERED: 0.9 % Sodium Chloride 250 ML IVC SCH (12:15)
[2022-03-26] MEDS: Piperacillin/Tazobactam 3.375 GM in 0.9 % Sodium Chloride Mini Bag 100 ML IVPB SCH ×2 (12:39→18:13)
[2022-03-26 12:54] LABS: Lymphocytes # 1.4 K/mcL (0.6-4.6); Neutrophils # 31.6 K/mcL (1.6-8.9)
[2022-03-26 12:59] LABS: Anisocytosis 2+ (Not Present); Hypochromasia Present (Not Present); Poikilocytosis 2+ (Not Present); Stomatocytes 2+ (Not Present)
[2022-03-26 13:00] LABS: Platelet Estimate Marked Increase (Normal); Polychromasia 1+ (Not Present)
[2022-03-26] MEDS ORDERED: Vancomycin 500 MG in 0.9 % Sodium Chloride 250 ML IVPB SCH (13:00)
[2022-03-26 13:01] LABS: Large Platelets Present (Not Present)
[2022-03-26] MEDS ORDERED: *HR* HYDROmorphone (PF) 1 MG/ML SYRINGE IVP ONE ×2 (13:19→17:47)
[2022-03-26] MEDS ORDERED: *HR* OxyCODONE Immed Rel 5 MG TABLET PO PRN (13:21)
[2022-03-26] MEDS: 0.9 % Sodium Chloride 1,000 ML IVC SCH (13:29)
[2022-03-26] MEDS: Vancomycin 500 MG in 0.9 % Sodium Chloride Mini Bag 100 ML IVPB SCH (13:30)
[2022-03-26] MEDS: hydrOXYzine pamoate 25 MG CAPSULE PO PRN (14:51)
[2022-03-26] MEDS ORDERED: MOM Conc 10 ML UD.LIQ PO ONE (15:08)
[2022-03-26] MEDS ORDERED: Scopolamine Patch 1.5 MG PATCH.TD72 TD SCH (18:00)
[2022-03-26] MEDS: QUEtiapine Fumarate 25 MG TABLET PO SCH (20:05)
[2022-03-26 21:13] LABS: Hematocrit 32.2 % (35.3-44.9); Hemoglobin 9.9 g/dL (11.5-15.4)
[2022-03-27] MEDS: Piperacillin/Tazobactam 3.375 GM in 0.9 % Sodium Chloride Mini Bag 100 ML IVPB SCH ×4 (00:59→23:47)
[2022-03-27] MEDS: 0.9 % Sodium Chloride 1,000 ML IVC SCH (01:00)
[2022-03-27 04:36] LABS: Basophils % 0.2 %; Hematocrit 29.4 % (35.3-44.9); Hemoglobin 9.3 g/dL (11.5-15.4); Immature Granulocytes % 0.3 % (0-4); Lymphocytes # 0.7 K/mcL (0.6-4.6); Lymphocytes % 5.7 %; Mean Corpuscular HGB Conc 31.6 g/dL (31.6-35.5); Mean Corpuscular Hemoglobin 26.4 pg (28.0-33.3); Mean Corpuscular Volume 83.5 fL (83.0-100.0); Mean Platelet Volume 9.3 fL (9.4-12.4); Monocytes # 0.5 K/mcL (0.0-1.3); Monocytes % 4.1 %; Neutrophils # 10.4 K/mcL (1.6-8.9); Platelet Count 742 K/mcL (140-400); Red Blood Count 3.52 M/mcL (3.82-4.97); Red Cell Distribution Width 15.4 % (11.5-14.5); Segmented Neutrophils % 89.7 %
[2022-03-27 04:40] LABS: White Blood Count 11.6 K/mcL (4.3-11.1)
[2022-03-27 04:56] LABS: Calcium 10.4 mg/dL (8.6-10.3); Potassium 3.2 mEq/L (3.5-5.1)
[2022-03-27 05:11] LABS: Platelet Estimate Marked Increase (Normal)
[2022-03-27] MEDS ORDERED: *HR* Enoxaparin 40 MG/0.4 ML SYRINGE SQ SCH (06:00)
[2022-03-27] MEDS: Sennosides/Docusate Sodium TABLET PO SCH ×2 (07:58→20:04)
[2022-03-27] MEDS: Gabapentin 100 MG CAPSULE PO SCH ×2 (07:58→20:04)
[2022-03-27] MEDS: Lactobacillus 1 EACH CAP.SPRINK PO SCH ×2 (07:58→20:04)
[2022-03-27] MEDS: *HR* Buprenorphine HCl 8 MG TAB.SUBL SL SCH ×2 (10:22→20:04)
[2022-03-27] MEDS: Ondansetron 4 MG/2 ML VIAL IVP SCH ×2 (11:46→17:05)
[2022-03-27] MEDS: Vancomycin 500 MG in 0.9 % Sodium Chloride Mini Bag 100 ML IVPB SCH (15:27)
[2022-03-27] MEDS ORDERED: Haloperidol Oral Conc 10 MG/5 ML UDC PO PRN (19:17)
[2022-03-27] MEDS: QUEtiapine Fumarate 25 MG TABLET PO SCH (20:04)
[2022-03-28] MEDS: Ondansetron 4 MG/2 ML VIAL IVP SCH ×2 (00:07→05:43)
[2022-03-28] MEDS: Piperacillin/Tazobactam 3.375 GM in 0.9 % Sodium Chloride Mini Bag 100 ML IVPB SCH (08:19)
[2022-03-28] MEDS: Gabapentin 100 MG CAPSULE PO SCH (08:20)
[2022-03-28] MEDS: *HR* Buprenorphine HCl 8 MG TAB.SUBL SL SCH ×2 (08:21→21:39)
[2022-03-28] MEDS: Lactobacillus 1 EACH CAP.SPRINK PO SCH (08:22)
[2022-03-28] MEDS: Sennosides/Docusate Sodium TABLET PO SCH ×2 (08:22→21:47)
[2022-03-28] MEDS: Ondansetron 4 MG/2 ML VIAL IVP PRN (17:18)
[2022-03-28] MEDS: *HR* Promethazine 25 MG/ML VIAL IM PRN (17:40)
[2022-03-28] MEDS ORDERED: Ondansetron 4 MG/2 ML VIAL IVP ONE (17:57)
[2022-03-28] MEDS: Bisacodyl 10 MG RECTAL SUPPOSITORY RC SCH (18:26)
[2022-03-28] MEDS ORDERED: Prochlorperazine 10 MG/2 ML VIAL IVP ONE (21:03)
[2022-03-28] MEDS ORDERED: Scopolamine Patch 1.5 MG PATCH.TD72 TD SCH (21:15)
[2022-03-28] MEDS: QUEtiapine Fumarate 25 MG TABLET PO SCH (21:39)
[2022-03-29] MEDS ORDERED: Methylnaltrexone 12 MG/0.6 ML SYRINGE SQ ONE (09:54)
[2022-03-29] MEDS: Sennosides/Docusate Sodium TABLET PO SCH ×3 (10:29→21:51)
[2022-03-29] MEDS: *HR* Buprenorphine HCl 8 MG TAB.SUBL SL SCH ×3 (10:29→21:51)
[2022-03-29] MEDS: Bisacodyl 10 MG RECTAL SUPPOSITORY RC SCH (10:29)
[2022-03-29] MEDS: Ondansetron 4 MG/2 ML VIAL IVP PRN (14:52)
[2022-03-29] MEDS ORDERED: Prochlorperazine 10 MG/2 ML VIAL IVP ONE (19:51)
[2022-03-29] MEDS: QUEtiapine Fumarate 25 MG TABLET PO SCH (21:51)
[2022-03-29] MEDS ORDERED: Haloperidol Lactate 5 MG/ML VIAL IVP ONE (22:38)
[2022-03-29] MEDS ORDERED: *HR* LORazepam 2 MG/ML VIAL IVP PRN (22:42)
[2022-03-29] MEDS ORDERED: Milk and Molasses Enema 200 ML RC ONE (22:43)
[2022-03-29] MEDS: *HR* Promethazine 25 MG/ML VIAL IM PRN (23:38)
[2022-03-29] MEDS: *HR* FentaNYL (PF) 100 MCG/2 ML VIAL IVP PRN (23:49)
[2022-03-29] MEDS: Haloperidol Lactate 5 MG/ML VIAL IVP SCH (23:49)
[2022-03-29] MEDS: Pantoprazole 40 MG in 0.9 % Sodium Chloride Mini Bag 100 ML IVC SCH (23:53)
[2022-03-30] MEDS: *HR* LORazepam 2 MG/ML VIAL IVP PRN ×2 (04:23→09:16)
[2022-03-30] MEDS: Haloperidol Lactate 5 MG/ML VIAL IVP SCH ×3 (05:57→12:16)
[2022-03-30] MEDS: Pantoprazole 40 MG in 0.9 % Sodium Chloride Mini Bag 100 ML IVC SCH ×2 (05:58→11:19)
[2022-03-30] MEDS: *HR* FentaNYL (PF) 100 MCG/2 ML VIAL IVP PRN ×5 (05:59→13:39)
[2022-03-30] MEDS ORDERED: 0.9 % Sodium Chloride Mini Bag 100 ML ONE (08:40)
[2022-03-30] MEDS: Ondansetron 4 MG/2 ML VIAL IVP PRN (08:43)
[2022-03-30] MEDS: Bisacodyl 10 MG RECTAL SUPPOSITORY RC SCH (08:47)
[2022-03-30] MEDS: Sennosides/Docusate Sodium TABLET PO SCH (08:48)
[2022-03-30] MEDS: *HR* Buprenorphine HCl 8 MG TAB.SUBL SL SCH (08:48)
[2022-03-30] MEDS ORDERED: Prochlorperazine 10 MG/2 ML VIAL IVP ONE (09:30)
[2022-03-30] MEDS ORDERED: *HR* LORazepam 2 MG/ML VIAL IVP PRN (10:04)
[2022-03-30 11:47] VITALS: BP 136/73; PULSE 112; TEMP 98; O2SAT 91
== END 2022-03-30 14:32 | disposition hospice, inpatient (51) | DRG 720 ==
LOC: EMEROOARM 12:11 → SUATTDRO 15:01 → 2NENU 15:01 → 3ANU 03-17 18:25 → 2ANU 03-27 16:36
PROVIDERS: ADMIT Internal Medicine; ATTEND Internal Medicine

== ENCOUNTER 2022-03-30 13:17 | Inpatient (IN) ==
[2022-03-30] MEDS ORDERED: FentaNYL (PF) 1,000 MCG/100 ML IV.SOLN IVC SCH (13:30)
[2022-03-30] MEDS ORDERED: Haloperidol Lactate 5 MG/ML VIAL IVP SCH ×2 (16:00→18:00)
[2022-03-30] MEDS ORDERED: *HR* LORazepam 2 MG/ML VIAL IVP SCH (16:00)
[2022-03-30] MEDS ORDERED: Ondansetron 4 MG/2 ML VIAL IVP SCH (18:00)
[2022-03-31] MEDS ORDERED: Scopolamine Patch 1.5 MG PATCH.TD72 TD SCH (21:00)
== END 2022-03-30 17:34 | disposition expired | DRG 951 ==
LOC: 2ANU 14:03
PROVIDERS: ADMIT Internal Medicine Hospice and Palliative Medicine; ATTEND Internal Medicine Hospice and Palliative Medicine